=== PATIENT | male | born 1955 | race Caucasian/White ===

== ENCOUNTER 2018-09-10 12:38 | Inpatient (IN) | payer OTHER ==
--- NOTE | 2018-09-10 13:34 | ED ---
Shortness of Breath - HPI Summary HPI Summary: Pt is a 63 y/o male who presents to the ED c/o SOB. He is transferred to [facility] from [place] [facility] via EMS for evaluation in the ED and then admission for his CHF , hyperkalemia, and hypoxia, CKD and elevated troponin. Today was pt's first presentation to [place] ED, so there are no prior labs or EKG's for comparison. Pt [facility], was last seen there on , when pt had bloodwork, CXR and he was placed on Lasix. His wbc on was 14, his Hb was 10.1, his BUN/creat 62/3.1. Today's labs at [place] show wbc 14.0, Hb 9.2, BUN/creat 3.2, K+ 5.8 (normal at [place] is 5.0), glucose 146. QJQ=844. CXR showed low lung volumes, cardiomegaly, and pulmonary vascular congestion. EKG showed SR, with no QRS prolongation or peaked T waves. The K+ was treated with Kayexalate 30gms po, Calcium gluconate, Dextrose and insulin. Whille in [place] pt was hypoxic, with O2 sats 90 and below on room air, with O2 sats improving on 3LNC to 95%. In [place] pt's BP was 150/72, HR 90, R 18- 20, temp 97.2. Pt denied any CP. [place] repeated K+=5.6, and repeat troponin was 0.06, repeat BNP pending. As per medical records, provider at [place] noted pallor, BLE weakness, abdominal distention but abd soft, not tympanitic, and bilateral foot tenderness upon examination with wounds on bilateral toes. While at [place], he had a troponin of 0.058. Pt is dyspneic at rest. PMHx DM, HLD, CAD, AFib, kidney CA with "some of his kidney removed", chronic kidney disease. He denies using at home oxygen normally. He is a former smoker. Vital signs: HR 96 bpm, BP 134/82, O2 sat 95% on 3L oxygen NC. Pt is prescribed Amlodipine, Ascorbic Acid, Atorvastatin, Cephalexin, Vitamin D3, NovoLog Mix 70/30, Lisinopril, Tamsulosin, Lasix. Prior to accepting transfer, I spoke with Dr. Kilgore, Dr. Clay, and Dr. Ha, and all concurred that pt may be accepted to [facility]. - History of Current Complaint Chief Complaint: EDShortnessOfBreath Time Seen by Provider: 09/10/18 12:52 Hx Obtained From: Patient, Medical Records, Other: - Chuck Mcgregor NP at [place] Onset/Duration: Gradual Onset, Still Present Timing: Constant Current Severity: Moderate Dyspnea At: Rest Aggrevating Factors: Nothing Alleviating Factors: Oxygen Related History: Obesity - Allergy/Home Medications Allergies/Adverse Reactions: Allergies Allergy/AdvReac Type Severity Reaction Status Date / Time No Known Drug Allergies Allergy Unknown none Verified 09/10/18 12:54 Home Medications: Home Medications Ascorbic Acid TAB* [Vitamin C TAB*] 250 mg PO DAILY 09/10/18 [History Confirmed 09/10/18] Atorvastatin* [Lipitor*] 40 mg PO DAILY 09/10/18 [History Confirmed 09/10/18] Cholecalciferol TAB* [Vitamin D TAB*] 2,000 units PO DAILY 09/10/18 [History Confirmed 09/10/18] Furosemide TAB* [Lasix TAB*] 40 mg PO DAILY 09/10/18 [History Confirmed 09/10/18 ] Insulin Detemir (NF) [Levemir (NF)] 54 unit SUBCUT BID 09/10/18 [History Confirmed 09/10/18] Insulin REGULAR(*) 10 units SUBCUT AC 09/10/18 [History Confirmed 09/10/18] Lisinopril TAB* [Prinivil TAB*] 20 mg PO DAILY 09/10/18 [History Confirmed 09/10] Mupirocin 2% OINT* [Bactroban 2 % Oint*] 1 applic TOPICAL BID 09/10/18 [History Confirmed 09/10/18] Tamsulosin CAP* [Flomax CAP*] 0.4 mg PO DAILY 09/10/18 [History Confirmed ] amLODIPine TAB* [Norvasc 5 mg TAB*] 10 mg PO DAILY 09/10/18 [History Confirmed 09/10/18] PMH/Surg Hx/FS Hx/Imm Hx Previously Healthy: No Endocrine/Hematology History: Reports: Hx Diabetes Cardiovascular History: Reports: Hx Atrial Fibrillation, Hx Congestive Heart Failure, Hx Coronary Artery Disease, Hx Hypercholesterolemia History: Reports: Hx Renal Disease, Other Problems/Disorders - kidney CA, with some of his kidney removed - Cancer History Cancer Type, Location and Year: "kidney" - Surgical History Surgery Procedure, Year, and Place: kidney CA - 2/3 kidney removed Infectious Disease History: No Infectious Disease History: Denies: Traveled Outside the [place] in Last 30 Days - Family History Known Family History: Positive: Other - pancreatic CA in brother - Social History 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 Alcohol Use: None 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 Hx Substance Use: No Substance Use Type: Reports: None Hx Tobacco Use: Yes Smoking Status (MU): Former Smoker Review of Systems Constitutional: Negative Cardiovascular: Negative Positive: Shortness Of Breath Gastrointestinal: Negative Positive: Other - abdominal distention Positive: no symptoms reported - still makes urine Positive: Myalgia - bilateral foot Positive: Other - pallor, wounds on bilat great toes, bandaged Positive: Weakness - BLE, generalized Psychological: Normal All Other Systems Reviewed And Are Negative: Yes Physical Exam - Summary Physical Exam Summary: Appearance: Ill-appearing, no pain distress, obese Skin: Warm, color reflects adequate perfusion, band-aid on left and right great toe covering wounds (bandage not removed in ED) Head: Normal Head/Face inspection, atraumatic Eyes: Conjunctiva clear ENT: Normal inspection Neck: Supple, no nodes, no JVD Respiratory: Lungs clear, normal breath sounds, moderate respiratory distress, dyspnea at rest Cardio: RRR, No murmur, pulses normal, brisk capillary refill Abdomen: Soft, nontender, nondistended, no masses, no guarding, no rebound Bowel sounds: Present Musculoskeletal: Strength Intact/ROM intact, no calf tenderness, BLE edema, wounds on bilat great toes Psychological: Normal Neuro: Alert, muscle tone normal, no focal deficit, generalized weakness Triage Information Reviewed: Yes Vital Signs On Initial Exam: Initial Vitals Temp Pulse Resp BP Pulse Ox 97.9 F 96 20 145/71 97 09/10/18 12:53 09/10/18 12:53 09/10/18 12:53 09/10/18 12:53 09/10/18 12:53 Vital Signs Reviewed: Yes Diagnostics - Vital Signs Vital Signs Temp Pulse Resp BP Pulse Ox 09/10/18 12:53 97.9 F 96 20 145/71 97 - Laboratory Result Diagrams: 09/10/18 14:09 09/10/18 14:09 Lab Statement: Any lab studies that have been ordered have been reviewed, and results considered in the medical decision making process. - Radiology CXR Radiology Interpretation Completed By: Radiologist Summary of Radiographic Findings: Probable mild pulmonary vascular congestion. ED physician reviewed radiology report. - EKG 14:16 Cardiac Rate: NL - 92 bpm EKG Rhythm: 1st Degree HB - AV block ST Segment: Non-Specific Ectopy: None EKG Comparison: Other - No prior to compare Summary of EKG Findings: An EKG at 14:16 reveals nml AV/IV CT, nml QTc. No acute changes. Re-Evaluation - Re-Evaluation First Eval Re-Evaluation Time: 14:55 Change: Unchanged Comment: Pt is still SOB. Respiratory therapy is in the room evaluating the pt and cardiology is doing an echocardiogram. Pt denies CP Course/Dx - Course Course Of Treatment: Pt is a 63 y/o male who presents to the ED c/o SOB. He is transferred here from [place] ER for admission for his CHF, hyperkalemia, and hypoxia, elevated troponin and CKD. Pt was given kayexalate, calcium gluconate and dextrose and insulin in [place] ED for K+ 5.8. His renal function is stable since 08/26/18 (the only other labs available on pt). His troponin is elevated, but EKG is not a STEMI, and may represent demand ischemia, or elevated due to renal disease. Pt medications reviewed this visit. Nurses notes reviewed. Allergies noted. Bloodwork revealed a Troponin of 0.08 and BNP of 267. A physical exam revealed band-aid of left and right great toes, moderate respiratory distress, dyspnea at rest, and BLE edema. A CXR revealed Probable mild pulmonary vascular congestion. An EKG revealed a rate of 92 bpm, 1st degree AV block, no acute changes. Pt will be admitted to Dr. Ha with final dx of CHF, Hyperkalemia, Hypoxia, and Elevated troponin and CKD. He is agreeable with this plan. 30 minutes of CCT. Discussed pt care with Dr. Clay and Dr. Kilgore prior to transfer, and they will consult if requested. - Diagnoses Provider Diagnoses: CHF (congestive heart failure), Hyperkalemia, Hypoxia, Elevated troponin, CKD ( chronic kidney disease) stage 4, GFR 15-29 ml/min - Physician Notifications Discussed Care of Patient With: Terese Ha Time Discussed With Above Provider: 12:30 Instructed by Provider To: Admit As Inpatient - Critical Care Time Critical Care Time: 30-74 min - 30 minutes; CCT is EXCLUSIVE of separately billable procedures. Discharge - Sign-Out/Discharge Documenting (check all that apply): Patient Departure - Admit Patient Received Moderate/Deep Sedation with Procedure: No - Discharge Plan Condition: Stable Disposition: ADMITTED TO [facility] - Billing Disposition and Condition Condition: STABLE Disposition: Admitted to [facility] - Attestation Statements Document Initiated by Becky: Yes Documenting Scribe: Rajwinder Flores Provider For Whom Alannahe is Documenting (Include Credential): Joselin Odom MD Scribe Attestation: Rajwinder Velazquez scribed for Joselin Odom MD on 09/10/18 at 2329. Scribe Documentation Reviewed: Yes Provider Attestation: The documentation as recorded by the Rajwinder sagastume accurately reflects the service I personally performed and the decisions made by , Joselin Odom MD Status of Scribe Document: Viewed
[2018-09-10 14:20] LABS: ABS Basophils 0.1 10^3/ul (0-0.2); ABS Eosinophils 0.5 10^3/ul (0-0.6); ABS Lymphocytes 1.1 10^3/ul (1.0-4.8); ABS Monocytes 1.3 10^3/ul (0-0.8); ABS Neutrophils 11.9 10^3/ul (1.5-7.7); ABS Nucleated RBC 0 10^3/ul; Eosinophil % 3.6 %; Hematocrit 29 % (36-46); Hemoglobin 9.3 g/dL (14.0-18.0); Lymphocyte % 7.2 %; Mean Corpuscular HGB Conc 33 g/dL (31-36); Mean Corpuscular Hemoglobin 30 pg (27-31); Mean Corpuscular Volume 91 fL (80-94); Mean Platelet Volume 7.3 fL (7.4-10.4); Nucleated Red Blood Cells % 0; Platelet Count 275 10^3/uL (150-450); Red Blood Count 3.14 10^6 /uL (4.18-5.48); Red Cell Distribution Width 14 % (10.5-15); White Blood Count 14.9 10^3/uL (3.5-10.8)
[2018-09-10 14:29] LABS: Activated Partial Thrombo Time 30.5 seconds (26.0-36.3); INR 1.06 (0.77-1.02)
[2018-09-10 14:53] LABS: CKMB ng/mL 2.6 ng/mL (0.6-6.3)
[2018-09-10 14:54] LABS: Troponin I 0.08 ng/mL (<0.04)
[2018-09-10] MEDS ORDERED: Perflutren Lipid Microsphere* 3 ML VIAL ONE (15:02)
[2018-09-10 15:15] LABS: ALT 29 U/L (7-52); AST 23 U/L (13-39); Albumin 3.4 g/dL (3.2-5.2); Albumin/Globulin Ratio 0.9 (1-3); Alkaline Phosphatase 141 U/L (34-104); BUN/Creatinine Ratio 22.4 (8-20); Blood Urea Nitrogen 68 mg/dL (6-24); C Reactive Protein 13.28 mg/L (<8.01); CO2 Carbon Dioxide 19 mmol/L (22-32); Calcium 8.7 mg/dL (8.6-10.3); Chloride 111 mmol/L (101-111); Creatine Kinase 38 U/L (10-223); EGFR African American 25.2 (>60); EGFR Non-African American 20.9 (>60); Globulin 3.7 g/dL (2-4); Glucose 143 mg/dL (70-100); Sodium 139 mmol/L (135-145); Total Protein 7.1 g/dL (6.4-8.9)
[2018-09-10 15:16] LABS: Anion Gap 9 mmol/L (2-11); Potassium 5.2 mmol/L (3.5-5.0)
[2018-09-10] MEDS ORDERED: Albuterol/Ipratropium NEB.SOL* Albuterol 2.5 MG/Ipratropium 0.5 MG 3 ML INH PRN (15:16)
[2018-09-10] MEDS ORDERED: Acetaminophen TAB* 325 MG PO PRN (15:16)
[2018-09-10] MEDS ORDERED: Albuterol 2.5 MG/3 ML NEB.SOL* (0.083%) INH PRN (15:16)
--- NOTE | 2018-09-10 15:50 | ECHO ---
Patient: SHABBIR SHANNON [facility] Rec#: [id number] : 1955 Date: 09/10/2018 Age: 63y Height: 180 cm / 70.9 in Weight: 159 kg / 350.4 lbs Sex: M BSA: 2.67 Room#: -2 Admit Date#: 09/10/2018 Type: Inpatient Referring: Magalis Castaneda Reading: Arie Kilgore MD Director Of Program Management: Suzy Whalen RDCS CC: Orly Webb Transthoracic Echocardiogram Indication: Shortness of breath BP: 145/71 HR: 96 Rhythm: NSR with PACs Findings History: DM, CHF, kidney cancer, former smoker, morbid obesity. Technical Comments: The study is technically limited due to patient body habitus. Completed at 1545. Left Ventricle: The left ventricular chamber size is normal. Mild concentric left ventricular hypertrophy is observed. There is normal left ventricular systolic function. The estimated ejection fraction is 55-60%. There is septal flattening of the interventricular septum consistent with right ventricular volume or pressure overload. There is no consistent Doppler evidence of clinically significant diastolic dysfunction. Left Atrium: The left atrium is severely dilated. Right Ventricle: The right ventricle is moderately dilated. The right ventricular global systolic function is low normal. Right Atrium: The right atrium is moderate to severely dilated. Aortic Valve: The aortic valve is trileaflet. The aortic valve leaflets are mildly thickened. There is a trace of aortic regurgitation. There is no evidence of aortic stenosis. Mitral Valve: There is mitral annular calcification. The mitral valve leaflets are mildly thickened. There is trace to mild mitral regurgitation. There is no evidence of mitral stenosis. Tricuspid Valve: The tricuspid valve leaflets are normal. There is trace to mild tricuspid regurgitation. The right ventricular systolic pressure is estimated at 33 mmHg. There is evidence that pulmonary hypertension may be underestimated. There is no tricuspid stenosis. Pulmonic Valve: The pulmonic valve structure is not well visualized. There is no pulmonic stenosis. Pericardium: There is no significant pericardial effusion. A pericardial fat pad is visualized. Aorta: There is no dilatation of the ascending aorta. There is no dilatation of the aortic arch. There is mild dilatation of the aortic root. Pulmonary Artery: The main pulmonary artery is not well visualized. Venous: The inferior vena cava is dilated. There is an approximate 50% respiratory change in the inferior vena cava dimension. Contrast: Definity was used to optimize study. 3 mL of diluted Definity were utilized. Intravenous contrast was used to enhance endocardial border definition. Summary: There was not any prior study for comparison. Conclusions Mild concentric left ventricular hypertrophy is observed. There is normal left ventricular systolic function. The estimated ejection fraction is 55-60%. The right ventricular global systolic function is low normal. There is a trace of aortic regurgitation. There is no evidence of aortic stenosis. There is trace to mild mitral regurgitation. There is trace to mild tricuspid regurgitation. There is no significant pericardial effusion. Measurements Name Value Normal Range RVIDd (AP) 2D 2.8 cm (0.9 - 2.6) RVDdMajor (2D) 5.4 cm (2.2 - 4.4) RAd ISD 4CH 6.1 cm (3.4 - 4.9) RA (A4C)W 5 cm (2.9 - 4.6) IVSd (2D) 1.1 cm (0.6 - 1) LVPWd (2D) 1.1 cm (0.6 - 1) LVIDd (2D) 4.5 cm (3.6 - 5.4) LVIDs (2D) 3.4 cm - LV FS (2D) 24 % (25 - 45) Aortic Annulus 2.1 cm (1.4 - 2.6) Ao root diameter (2D) 4.1 cm (2.1 - 3.5) Ascending Ao 3.3 cm (2.1 - 3.4) Aortic arch 2.8 cm (1.8 - 3.4) LA dimension (AP) 2D 4.2 cm (2.3 - 3.8) LAd ISD 4CH 6.1 cm (2.9 - 5.3) LA ISD 4CH W 5.2 cm (2.5 - 4.5) Name Value Normal Range LA ESV BP (A/L) index 51 ml/m2 - Name Value Normal Range MV E-wave Vmax 1.2 m/sec - MV deceleration time 158 msec - MV A-wave Vmax 0.9 m/sec - MV E:A ratio 1.3 ratio - LV septal e' Vmax 0.07 m/sec - LV lateral e' Vmax 0.11 m/sec - LV E:e' septal ratio 17.1 ratio - LV E:e' lateral ratio 10.9 ratio - Name Value Normal Range AV Vmax 1.6 m/sec - AV VTI 30 cm - AV peak gradient 10 mmHg - AV mean gradient 6 mmHg - LVOT Vmax 1.1 m/sec - LVOT VTI 20 cm - LVOT peak gradient 5 mmHg - LVOT mean gradient 2 mmHg - LUL Vmax 1 m/sec - Name Value Normal Range TR Vmax 2.5 m/sec - TR peak gradient 25 mmHg - RAP 8 mmHg - RVSP 33 mmHg - IVC diameter 2.2 cm - Name Value Normal Range PV Vmax 1 m/sec - PV peak gradient 4 mmHg -
[2018-09-10] MEDS ORDERED: hydrALAZINE IV* 20 MG/ML VIAL IV SLOW PU PRN (16:25)
[2018-09-10] MEDS ORDERED: Furosemide IV* 10 MG/ML 10 ML VIAL (100 MG) IV ONE (16:35)
[2018-09-10] MEDS: Insulin REGULAR(*) 1 UNITS UNIT SUBCUT SCH (16:53)
[2018-09-10] MEDS: Insulin GLARGINE(*) 1 UNITS UNIT SUBCUT SCH (16:58)
[2018-09-10 17:30] LABS: Troponin I 0.06 ng/mL (<0.04)
--- NOTE | 2018-09-10 17:39 | HP ---
CC: [facility] * HISTORY AND PHYSICAL: DATE OF ADMISSION: 09/10/18 PRIMARY CARE PROVIDER: [facility] ATTENDING PHYSICIAN: Dr. Ha * (dictated by Bradford Ware, SHASTA). CHIEF COMPLAINT: Shortness of breath. HISTORY OF PRESENT ILLNESS: Mr. Deleon is a 63-year-old male with a past medical history significant for insulin-dependent diabetes type 2, renal insufficiency secondary to kidney resection secondary to renal carcinoma; who presented to [facility] today with complaints of shortness of breath. The patient reports that he has had a cough for several weeks. He believes it started in the beginning of August. On 08/26/18, the patient presented to urgent care, who gave him antibiotics. He reports that cough has continued since that time and has not improved. The patient reports the cough is dry. The patient reports that the cough has not been bothering him until last night at 0400 when he awoke significantly short of breath. He denies any aggravating factors for the shortness of breath. He reports alleviating factors include oxygen supplementation given to him in the emergency room at [place]. He denies any chest pain, palpitations, diaphoresis, nausea, vomiting , hemoptysis, fever, abdominal pain. The patient was evaluated in [facility] and given his status, they requested transfer to [facility] for Cardiology consult and further workup. While in [facility], he was given a DuoNeb and Lasix. He had an EKG, which showed no ST elevation and was sinus rhythm. They also noted that his potassium was high. He received Kayexalate, calcium gluconate, insulin, and dextrose. He did not have any peaked T- waves. Specifically, his initial potassium at [facility] was 5.8. In addition, while in [facility], he had troponins, which came back elevated at 0.058 at 06:40 and 0.060 at 10:47. He also had elevated BUN and creatinine and hemoglobin, which are documented as chronic based on results from [facility] earlier this month. Given elevated troponins and his new congestive heart failure along with many chronic medical issues, the provider at [facility] suggested transfer to higher level of care. The provider at [facility] also spoke to Dr. Odom and Dr. Ha, who accepted the patient here at [facility]. While in the emergency room here at [facility], the patient has been in room 2. The patient has been on 3 L oxygen and saturating well. The patient reports improvement in shortness of breath with the oxygen in place. The patient continues to deny chest pain. The patient did have a repeat EKG while here in the emergency room, which showed no significant findings including no ST changes. While in the emergency department here, the patient also had a chest x -ray, which revealed probable mild pulmonary vascular congestion. In addition, he had repeat labs, which were significant for leukocytosis of 14.9, hemoglobin and hematocrit 9.3 and 29 respectively, potassium 5.2, creatinine 3.03, and troponin of 0.80. He also had a BNP which revealed 267. The patient will be admitted to the hospital on observation status to telemetry. PAST MEDICAL HISTORY: 1. Diabetes type 2, insulin-dependent. 2. Renal insufficiency secondary to complete nephrectomy of right kidney, partial nephrectomy of left kidney. 3. Hypertension. 4. Morbid obesity. 5. BPH. 6. Kidney cancer. PAST SURGICAL HISTORY: 1. Nephrectomy as mentioned above. 2. Toe amputation on the right. 3. Tonsillectomy. HOME MEDICATIONS: 1. Insulin regular 10 units subcu a.c. 2. Lasix 40 mg p.o. daily. 3. Flomax 0.4 mg p.o. daily. 4. Bactroban 2% one application topical b.i.d. 5. Lisinopril 20 mg p.o. daily. 6. Insulin Levemir 54 units subcu b.i.d. 7. Vitamin D 2000 units p.o. daily. 8. Lipitor 40 mg p.o. daily. 9. Ascorbic acid 250 mg p.o. daily. 10. Amlodipine 10 mg p.o. daily. ALLERGIES: No known drug allergies. FAMILY HISTORY: The patient reports mother and father are . Unknown cause and unknown medical history. The patient has multiple siblings, all of whom are healthy except 1 brother who is due to pancreatic cancer. The patient denies a family history of cardiovascular disease. The patient denies history of diabetes. SOCIAL HISTORY: The patient is a former smoker. He smoked approximately 10 to 15 years 2 packs per day. The patient is a former alcohol abuser. He has been sober for 19 years. The patient denies drug use. The patient does not work, he is on disability. The patient is not . The patient has no kids. The [facility] [place] [facility] The patient reports he has been placed in this home given his noncompliance. He reports he was not taking his insulin and not taking care of himself. REVIEW OF SYSTEMS: A 14-point review of systems was performed and all pertinent positive and negative findings in the HPI. All others negative. PHYSICAL EXAMINATION GENERAL: Mr. Deleon is a 63-year-old male, who is morbidly obese, sitting in bed, appears in no acute distress. Appears stated age. VITAL SIGNS: Temp 97.9, HR 97, RR 19, O2 saturation is 95% on 3 L, BP 137/82. HEENT: EOMs intact. PERRLA. Oral mucosa is moist without lesions. Posterior pharynx is clear. NECK: Supple. No lymphadenopathy. Full range of motion. RESPIRATORY: Symmetrical chest expansion. No accessory muscle use. Lungs are clear to auscultation. Mildly diminished. CV: Regular rate and rhythm. S1, S2 present. No murmurs, rubs, or gallops. No JVD. ABDOMEN: Soft, nontender to palpation. Bowel sounds normoactive throughout. No bruits. EXTREMITIES: Skin is warm and smooth bilaterally. He has +3 edema on the right and +2 edema on the left, pitting. He has no clubbing or cyanosis. Pedal pulses are 2+ bilaterally. MUSCULOSKELETAL: Full range of motion. No pain or deformities. NEURO: Awake, alert, and oriented x4. Moves all extremities. Motor strength 5 /5 in the upper and lower extremities. SKIN: The patient has bilateral small wounds on the plantar aspect of both feet below the great toes. The bandages were removed and now they are open to air. Remainder of the skin is grossly intact. DIAGNOSTIC STUDIES/LAB DATA: WBC 14.9, hemoglobin 9.3, hematocrit 29, platelets 275. Sodium 139, potassium 5.2, chloride 111, carbon dioxide 19, BUN 68, creatinine 3.03, glucose 143, lactic acid 0.9. Alk phos 141. Troponin 0.08. C- reactive protein 12.28. BNP 267. Chest x-ray, impression: Probable mild pulmonary vascular congestion. EKG, impression: Normal sinus rhythm. No ST changes. ASSESSMENT AND PLAN: Mr. Deleon is a 63-year-old man with a past medical history significant for type 2 diabetes insulin-dependent, hypertension, morbid obesity, renal insufficiency secondary to nephrectomy secondary to renal carcinoma, who presented to the emergency room today with complaints of shortness of breath and was found to have an acute congestive heart failure exacerbation. The patient will be admitted OBV. 1. Shortness of breath. As mentioned in the HPI, the patient awoke with shortness of breath after having about a month's worth of a cough. The patient is requiring supplemental oxygen at 3 L to maintain oxygen saturations above 92% . On the differentials include shortness of breath due to cardiac nature. Specifically, congestive heart failure. The patient does have an elevated BNP. The patient does have an elevated trop, which is slightly trending up. The patient has no chest pain or other associated symptoms. The patient has no EKG changes. We will trend the patient's troponins and plan accordingly. Dr. Kilgore is aware of the patient as he was contacted by Dr. Odom. Echo has been ordered. Also on the differential includes lung etiology. The patient's chest x-ray does not show an infiltrate or any consolidation. The patient does have a slightly elevated white count, but no elevated lactic acid and he is not febrile. We will continue the patient's DuoNeb. If the patient starts to show signs of infection, we will start antibiotics. We will continue the supplemental oxygen. We will repeat chest x-ray as needed. Also for lung etiology, I have ordered a D-dimer, which was 312. This is not positive using the age-adjusted levels. I do think if the patient continues to be tachycardic and requiring supplemental oxygen and does not improve, we should get a V/Q scan. We will need to avoid a CTA given the patient's kidney function. Finally , the patient's shortness of breath could also be exacerbated by his anemia. I will order iron studies and stool guaiac for blood. 2. Congestive heart failure. The patient was found to have possibly congestive heart failure exacerbation. He reports he does not carry a history of congestive heart failure, but is on Lasix at home. The patient's x-ray is consistent with congestive heart failure. The patient's BNP is consistent with congestive heart failure at 267. The patient did receive Lasix 40 mg IV while in [place] [facility]. We do not know how the patient responded to this as we do not have any output. We will continue IV Lasix to further diurese this patient. We will get strict I's and O's. We will monitor weights. 3. Elevated troponins. As mentioned in HPI, the patient does have slightly elevated troponins that have trended up very slightly. The patient has no EKG changes. The patient has no chest pain or other associated symptoms. We will continue to monitor the patient's troponins. It should be noted that the patient was given an aspirin 324 mg while in the emergency department at [place]. I will continue the patient on aspirin 81 mg daily while in the hospital. Dr. Kilgore is aware of the patient. 4. Hyperkalemia. The patient has a potassium of 5.2. This has improved from a potassium while at [facility]. We will continue to monitor. The patient will be on tele. 5. Leukocytosis. The patient has an elevated white blood count of 14.9. Once again, he is not febrile. We will monitor the patient for signs and symptoms of infection. 6. Anemia. The patient has a hemoglobin and hematocrit of 9.3 and 29 respectively. I will order a stool occult for blood. I will order iron studies. 7. Diabetes type 2, insulin-dependent. We will continue the patient's home medication regimen, but slightly decrease given his acute illness. We will monitor the patient's fingersticks a.c. and h.s. We will add a sliding scale. We will provide a consistent carb diet. 8. Hypertension. The patient is currently normotensive. We will continue the patient's amlodipine. We will monitor routinely. 9. Benign prostatic hypertrophy. We will continue the patient's Flomax. 10. Renal carcinoma, status post right total nephrectomy. Left partial nephrectomy. We will continue to monitor the patient's creatinine. We will contact Dr. Clay as needed. 11. FEN: The patient will not be receiving any IV fluids given his acute congestive heart failure. We will monitor his creatinine. The patient will be provided with a consistent carb diet. 12. Code status: The patient is a full code. 13. Surrogate decision maker: The patient's surrogate decision maker will be his older sister, Margaret Brambila, [phone]. 14. DVT prophylaxis: Based on the DVT Risk Assessment, the patient is a high risk. I will order subcu heparin. TIME SPENT: Approximately 60 minutes was spent on this admission, greater than half the time was spent with the patient obtaining my history, performing my physical exam, and reviewing my plan of care. This case has been reviewed with my attending, Dr. Ha, who agrees with my plan of care. BRADFORD WARE, SHASTA [id number]/CPS #: [id number] HA
[2018-09-10 20:25] LABS: Troponin I 0.06 ng/mL (<0.04)
[2018-09-10] MEDS: Mupirocin 2% OINT* TUBE TOPICAL SCH (21:09)
[2018-09-10] MEDS: Heparin VIAL(*) 5000 UNITS/ML VIAL (FIVE THOUSAND) SUBCUT SCH (21:11)
[2018-09-10 23:52] LABS: Troponin I 0.06 ng/mL (<0.04)
[2018-09-11] MEDS ORDERED: Tamsulosin CAP* 0.4 MG PO ONE
[2018-09-11] MEDS: Insulin GLARGINE(*) 1 UNITS UNIT SUBCUT SCH ×4 (05:11→20:42)
[2018-09-11] MEDS: Heparin VIAL(*) 5000 UNITS/ML VIAL (FIVE THOUSAND) SUBCUT SCH ×3 (05:16→20:41)
[2018-09-11 05:48] LABS: ABS Basophils 0.1 10^3/ul (0-0.2); ABS Eosinophils 0.5 10^3/ul (0-0.6); ABS Lymphocytes 1.1 10^3/ul (1.0-4.8); ABS Monocytes 1.4 10^3/ul (0-0.8); ABS Neutrophils 10.7 10^3/ul (1.5-7.7); ABS Nucleated RBC 0 10^3/ul; Hematocrit 26 % (36-46); Hemoglobin 8.7 g/dL (14.0-18.0); Lymphocyte % 7.6 %; Mean Corpuscular HGB Conc 33 g/dL (31-36); Mean Corpuscular Hemoglobin 30 pg (27-31); Mean Corpuscular Volume 91 fL (80-94); Mean Platelet Volume 6.8 fL (7.4-10.4); Nucleated Red Blood Cells % 0; Platelet Count 243 10^3/uL (150-450); Red Blood Count 2.87 10^6 /uL (4.18-5.48); Red Cell Distribution Width 14 % (10.5-15); White Blood Count 13.8 10^3/uL (3.5-10.8)
[2018-09-11 06:01] LABS: Albumin 2.9 g/dL (3.2-5.2); Anion Gap 6 mmol/L (2-11); CO2 Carbon Dioxide 21 mmol/L (22-32); Calcium 8.3 mg/dL (8.6-10.3); Chloride 111 mmol/L (101-111); Potassium 5.2 mmol/L (3.5-5.0); Sodium 138 mmol/L (135-145)
[2018-09-11 06:07] LABS: ALT 23 U/L (7-52); AST 20 U/L (13-39); Albumin/Globulin Ratio 0.9 (1-3); Alkaline Phosphatase 124 U/L (34-104); BUN/Creatinine Ratio 22.8 (8-20); Blood Urea Nitrogen 68 mg/dL (6-24); Cholesterol 77 mg/dL; EGFR African American 25.7 (>60); EGFR Non-African American 21.3 (>60); Globulin 3.2 g/dL (2-4); Glucose 130 mg/dL (70-100); LDL Cholesterol 35 mg/dL; Total Protein 6.1 g/dL (6.4-8.9); Triglycerides 66 mg/dL
[2018-09-11 06:16] LABS: Total Iron Binding Capacity 267 mcg/dL (250-450); Transferrin 191 mg/dL (203-362)
[2018-09-11 06:17] LABS: % Iron Saturation 6 % (15-55); Iron < 17 ug/dL (50-212)
[2018-09-11 06:31] LABS: TSH (Thyroid Stimulating Horm) 3.15 mcIU/mL (0.34-5.60)
[2018-09-11 06:38] LABS: Ferritin 114.9 ng/mL (24-336)
[2018-09-11 06:42] LABS: Folate > 20.00 ng/mL (>3.99)
[2018-09-11] MEDS: Insulin REGULAR(*) 1 UNITS UNIT SUBCUT SCH (07:14)
[2018-09-11] MEDS ORDERED: Insulin GLARGINE(*) 1 UNITS UNIT SUBCUT ONE (08:06)
[2018-09-11] MEDS: Tamsulosin CAP* 0.4 MG PO SCH (08:40)
[2018-09-11] MEDS: Aspirin 81 mg CHEW TAB* 81 MG TAB.CHEW PO SCH (08:40)
[2018-09-11] MEDS: Lisinopril TAB* 10 MG PO SCH (08:40)
[2018-09-11] MEDS: Atorvastatin* 40 MG TAB PO SCH (08:40)
[2018-09-11] MEDS: amLODIPine TAB* 5 MG PO SCH (08:41)
[2018-09-11] MEDS: Mupirocin 2% OINT* TUBE TOPICAL SCH ×2 (08:49→20:44)
[2018-09-11] MEDS ORDERED: Iron Sucrose* 200 MG in NS 0.9% 100 ML* 100 ML IVPB ONE (11:08)
[2018-09-11] MEDS ORDERED: Insulin REGULAR(*) 1 UNITS UNIT SUBCUT SCH (11:30)
--- NOTE | 2018-09-11 11:35 | CONSULT ---
Subjective Date of Service: 09/11/18 Interval History: Mr. Deleon is a 63 yo male with PMH significant for DM2 and renal insufficiency secondary to renal carcinoma. Mr. Deleon originally presented to [facility] with complaints of SOB with a cough. He was found to have elevated troponins and was transferred from [facility] ED to [facility]. Mr. Deleon presented to the hospital with wounds to bilateral feet. He states that the wounds on his feet have not been present for very long, he is unable to give a time frame. He states that he follows with the [facility] wound center. He states that he doesn't have dressing for the wounds at home. Patient seen and examined at bedside. Family History: Unchanged from Admission Social History: Unchanged from Admission Past Medical History: Unchanged from Admission Review of Systems - Measurements Intake and Output: Intake and Output Last 24 Hours 09/09/18 09/10/18 09/11/18 09/12/18 06:59 06:59 06:59 06:59 Intake Total 1086 360 Output Total 650 Balance 436 360 Weight 371 lb 9.6 oz Intake: IV Fluids 6 Oral 1080 360 Output: Urine 650 Other: Estimated Void Large - Review of Systems Constitutional Symptoms: Negative: Fever, Other - Chills Dermatology: Positive: Other - Open areas to bilateral feet Endocrinology: Positive: Diabetes Mellitus Objective Active Medications: Acetaminophen (Tylenol Tab*) 650 mg PO Q4H PRN Reason: FEVER/PAIN Albuterol (Ventolin 2.5 Mg/3 Ml Neb.Jessica*) 2.5 mg INH [id number] AWAKE PRN Reason: sob/wheezing Albuterol/Ipratropium (Duoneb (Albuterol 2.5 Mg/Ipratropium 0.5 Mg)) 1 neb INH [id number] AWAKE PRN Reason: sob/wheexing Amlodipine Besylate (Norvasc Tab*) 10 mg PO DAILY [facility] Aspirin (Aspirin 81 Mg Chew Tab*) 81 mg PO DAILY [facility] Atorvastatin Calcium (Lipitor*) 40 mg PO DAILY [facility] Furosemide (Lasix Iv*) 40 mg IV SLOW PU 0800,1500 [facility] Heparin Sodium (Porcine) (Heparin Vial(*)) 5,000 units SUBCUT Q8HR [facility] Iron Sucrose 200 mg/ Sodium (Chloride) 110 mls @ 110 mls/hr IVPB ONCE ONE Stop: 09/11/18 12:07 Insulin Glargine (Lantus(*)) 18 units SUBCUT Q12H [facility] Insulin Human Regular (Insulin Regular(*)) 0 units SUBCUT ACHS [facility]; Protocol Lisinopril (Prinivil Tab*) 20 mg PO DAILY [facility] Mupirocin (Bactroban 2 % Oint*) 1 applic TOPICAL BID [facility] Tamsulosin HCl (Flomax Cap*) 0.4 mg PO DAILY [facility] Vital Signs - 8 hr 09/11/18 09/11/18 09/11/18 04:10 07:20 08:20 Temperature 97.8 F 97.9 F Pulse Rate 86 79 Respiratory 20 16 16 Rate Blood Pressure 157/73 154/76 (mmHg) O2 Sat by Pulse 98 97 Oximetry Oxygen Devices in Use Now: Nasal Cannula Appearance: NAD, laying in bed Ears/Nose/Mouth/Throat: Mucous Membranes Moist Skin: - - See skin note below Neurological: Alert and Oriented x 3, NL Muscle Strength and Tone Result Diagrams: 09/16/18 06:03 09/16/18 06:03 Skin Deviation Note - Skin Deviation Findings Right plantar aspect of foot - Open area 1.6 cm x 1.1 cm x 0.1 cm. The wound base is dry with no drainage. The surrounding skin is intact without erythema. Left plantar aspect of foot - Open area is 2 cm x 2 cm x 0.1 cm. There is an area at about 3 o'clock that is 0.2 cm. The wound bed is pink. No drainage or erythema. Surrounding skin is intact. Assessment/Plan: Mr. Deleon is a 63 yo male with PMH significant for DM2 and renal insufficiency secondary to renal carcinoma. Mr. Deleon originally presented to [facility] with complaints of SOB with a cough. He was found to have an elevated troponin and was transferred from [facility] ED to [facility]. 1. Bilateral diabetic foot ulcers. Apply antibiotic ointment daily, may cover with a dry dressing such as a bandaid. Continue to follow with [facility] wound center. Consider ABIs and MRI if these wounds become chronic. 2. Diabetes Mellitus, type 2 with CKD. HgA1C 8.8. Maintain good glycemic control to allow for wound healing. 3. Morbid obesity. BMI 4. Diet. Consistent carbohydrate diet 5. Code Status. Full Code 6. Disposition. Disposition per primary medicine team TIME SPENT: The time spent on this wound consultation was 25 minutes and 15 minutes was spent with the patient discussing past medical history, assessing, measuring, and photographing the wounds. Wound Problem/Plan Is Patient a Wound Clinic Patient: Yes - [facility] Current Treatment: None Attending: Tammie Bishop
[2018-09-11] MEDS: Furosemide IV* 10 MG/ML 2 ML VIAL (20 MG) IV SLOW PU SCH ×2 (11:57→14:35)
--- NOTE | 2018-09-11 15:09 | PN ---
Subjective Date of Service: 09/11/18 Interval History: Patient is feeling the same as previously. Patient is SOB, particularly with minimal exertion. This came on Suddenly on sunday morning. Patient has had chronic LE swelling, but has not been previously diagnosed with HF despite previously elevate NT-proBNP this month from [place]. Patient denies CP, N/V, F/C, abdominal pain, diarrhea, patient is unaware of his previous Creatinine and has good urine output. 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 Family History: Unchanged from Admission Social History: Unchanged from Admission Past Medical History: Unchanged from Admission Objective Active Medications: Acetaminophen (Tylenol Tab*) 650 mg PO Q4H PRN PRN Reason: FEVER/PAIN Albuterol (Ventolin 2.5 Mg/3 Ml Neb.Jessica*) 2.5 mg INH [id number] AWAKE PRN PRN Reason: sob/wheezing Albuterol/Ipratropium (Duoneb (Albuterol 2.5 Mg/Ipratropium 0.5 Mg)) 1 neb INH [id number] AWAKE PRN PRN Reason: sob/wheexing Amlodipine Besylate (Norvasc Tab*) 10 mg PO DAILY [facility] Last Admin: 09/11/18 08:41 Dose: 10 mg Aspirin (Aspirin 81 Mg Chew Tab*) 81 mg PO DAILY [facility] Last Admin: 09/11/18 08:40 Dose: 81 mg Atorvastatin Calcium (Lipitor*) 40 mg PO DAILY [facility] Last Admin: 09/11/18 08:40 Dose: 40 mg Furosemide (Lasix Iv*) 40 mg IV SLOW PU 0800,1500 [facility] Last Admin: 09/11/18 14:35 Dose: 40 mg Heparin Sodium (Porcine) (Heparin Vial(*)) 5,000 units SUBCUT Q8HR [facility] Last Admin: 09/11/18 14:35 Dose: 5,000 units Insulin Glargine (Lantus(*)) 18 units SUBCUT Q12H [facility] Last Admin: 09/11/18 08:48 Dose: 18 unit Insulin Human Regular (Insulin Regular(*)) 0 units SUBCUT ACHS [facility]; Protocol Last Admin: 09/11/18 11:51 Dose: 3 unit Lisinopril (Prinivil Tab*) 20 mg PO DAILY [facility] Last Admin: 03/20/19 08:40 Dose: 20 mg Mupirocin (Bactroban 2 % Oint*) 1 applic TOPICAL BID [facility] Last Admin: 09/11/18 08:49 Dose: 1 admin Tamsulosin HCl (Flomax Cap*) 0.4 mg PO DAILY [facility] Last Admin: 09/11/18 08:40 Dose: 0.4 mg Vital Signs - 8 hr 09/11/18 09/11/18 09/11/18 07:20 07:40 08:20 Temperature 98.2 F 97.9 F Pulse Rate 85 79 Respiratory 16 16 16 Rate Blood Pressure 138/73 154/76 (mmHg) O2 Sat by Pulse 98 97 Oximetry 09/11/18 12:04 Temperature 98.2 F Pulse Rate 85 Respiratory 16 Rate Blood Pressure 137/69 (mmHg) O2 Sat by Pulse 98 Oximetry Oxygen Devices in Use Now: Nasal Cannula Appearance: Patient is a 63yo male who appears older than stated age and is sitting in the bed in [facility]. Eyes: No Scleral Icterus, PERRLA Ears/Nose/Mouth/Throat: NL Teeth, Lips, Gums, Clear Oropharnyx, Mucous Membranes Moist Neck: NL Appearance and Movements; NL JVP, Trachea Midline Respiratory: Symmetrical Chest Expansion and Respiratory Effort, Clear to Auscultation Cardiovascular: NL Sounds; No Murmurs; No JVD, RRR, - - 2+ Edema in B/L LE. Abdominal: NL Sounds; No Tenderness; No Distention, No Hepatosplenomegaly Lymphatic: No Cervical Adenopathy Extremities: No Clubbing, Cyanosis Skin: No Nodules or Sclerosis, - - Ulcers without surrounding erythema on B/L Plantar surfaces of feet. Neurological: Alert and Oriented x 3, NL Sensation, NL Muscle Strength and Tone , - - CN II-XII intact. Result Diagrams: 09/11/18 05:40 09/11/18 05:40 Assess/Plan/Problems-Billing Assessment: Patient is a 63yo male with a PMH for RCC S/P Nephrectomy, HTN, DM II, who is admitted with Acute Hypoxic respiratory failure due to HFpEF exacerbation and is improving slowly with IV diuresis. - Patient Problems (1) Acute heart failure with preserved ejection fraction Current Visit: Yes Status: Acute Code(s): I50.31 - ACUTE DIASTOLIC ( CONGESTIVE) HEART FAILURE SNOMED Code(s): 858152274 Comment: - With Acute hypoxic respiratory failure - Clinically fluid overloaded. LE Edema, Diminished lung sounds. - Patient denies previous history of HF, but had an elevated pro-ntBNP from 3/4 - TTE shows preserved EF with RV overload. - IV diuresis at relatively high dose due to Renal Failure - Strict I/O and Daily Weights. (2) Pulmonary HTN Current Visit: Yes Status: Acute Code(s): I27.20 - PULMONARY HYPERTENSION, UNSPECIFIED SNOMED Code(s): 91415843 Comment: - RV pressure overload on TTE, differential includes HFpEF, SAI or Obesity Hypoventilation. - Will check overnight pulse oximetry for SAI - V/Q scan negative for PE (3) HTN (hypertension) Current Visit: Yes Status: Acute Code(s): I10 - ESSENTIAL (PRIMARY) HYPERTENSION SNOMED Code(s): 66499505 Comment: - Normotensive (4) Diabetes mellitus Current Visit: Yes Status: Acute Code(s): E11.9 - TYPE 2 DIABETES MELLITUS WITHOUT COMPLICATIONS SNOMED Code(s): 68710125 Comment: - Continue Basal and SSI, hold scheduled mealtime insulin due to normoglycemia - A1c 8.8%, will need continued adjustment of medications outpatient when back to normal oral intake routine. (5) CKD (chronic kidney disease) Current Visit: Yes Status: Acute Code(s): N18.9 - CHRONIC KIDNEY DISEASE, UNSPECIFIED SNOMED Code(s): 637043076 Comment: - Due to Nephrectomy with likely Diabetic nephropathy contributing - At baseline from / labs. - Monitor closely with diuresis - Avoid nephrotoxins, lisinopril for renal protection. - Hyperkalemia, treated at [place] but still moderately elevated. Treat with IV lasix and recheck in AM. (6) DVT prophylaxis Current Visit: Yes Status: Acute Code(s): CMK7137 - SNOMED Code(s): 827038861 Comment: - Heparin SubQ (7) Full code status Current Visit: Yes Status: Acute Code(s): Z78.9 - OTHER SPECIFIED HEALTH STATUS SNOMED Code(s): 657963560 Status and Disposition: Inpatient for diuresis. Discharge when medically stable.
[2018-09-11] MEDS ORDERED: Dextrose 50% Syringe 50 ML* 25 GM/50 ML SYRINGE IV PUSH PRN (15:42)
[2018-09-11] MEDS: Insulin LISPRO* 1 UNITS UNIT SUBCUT SCH (16:42)
[2018-09-12 05:36] LABS: ABS Basophils 0 10^3/ul (0-0.2); ABS Eosinophils 0.6 10^3/ul (0-0.6); ABS Lymphocytes 1.3 10^3/ul (1.0-4.8); ABS Monocytes 1.2 10^3/ul (0-0.8); ABS Neutrophils 7.3 10^3/ul (1.5-7.7); ABS Nucleated RBC 0 10^3/ul; Eosinophil % 6.1 %; Hematocrit 26 % (36-46); Hemoglobin 8.7 g/dL (14.0-18.0); Lymphocyte % 12.2 %; Mean Corpuscular HGB Conc 33 g/dL (31-36); Mean Corpuscular Hemoglobin 31 pg (27-31); Mean Corpuscular Volume 91 fL (80-94); Nucleated Red Blood Cells % 0; Platelet Count 233 10^3/uL (150-450); Red Blood Count 2.85 10^6 /uL (4.18-5.48); Red Cell Distribution Width 14 % (10.5-15); White Blood Count 10.4 10^3/uL (3.5-10.8)
[2018-09-12] MEDS: Heparin VIAL(*) 5000 UNITS/ML VIAL (FIVE THOUSAND) SUBCUT SCH ×3 (05:49→21:51)
[2018-09-12 05:52] LABS: BUN/Creatinine Ratio 22.7 (8-20); Calcium 8.1 mg/dL (8.6-10.3); EGFR African American 24.8 (>60); EGFR Non-African American 20.5 (>60)
[2018-09-12 06:01] LABS: Potassium 5.2 mmol/L (3.5-5.0)
[2018-09-12] MEDS ORDERED: Iron Sucrose* 200 MG in NS 0.9% 100 ML* 100 ML IVPB ONE (08:30)
[2018-09-12] MEDS: Insulin LISPRO* 1 UNITS UNIT SUBCUT SCH ×3 (08:31→17:15)
[2018-09-12] MEDS: Atorvastatin* 40 MG TAB PO SCH (08:32)
[2018-09-12] MEDS: Aspirin 81 mg CHEW TAB* 81 MG TAB.CHEW PO SCH (08:32)
[2018-09-12] MEDS: Furosemide IV* 10 MG/ML 2 ML VIAL (20 MG) IV SLOW PU SCH ×2 (08:32→16:02)
[2018-09-12] MEDS: Insulin GLARGINE(*) 1 UNITS UNIT SUBCUT SCH ×2 (08:32→20:28)
[2018-09-12] MEDS: Tamsulosin CAP* 0.4 MG PO SCH (08:32)
[2018-09-12] MEDS: Lisinopril TAB* 10 MG PO SCH (08:32)
[2018-09-12] MEDS: amLODIPine TAB* 5 MG PO SCH (08:32)
[2018-09-12] MEDS: Mupirocin 2% OINT* TUBE TOPICAL SCH ×2 (08:36→20:30)
[2018-09-12] MEDS ORDERED: Neomycin/Polym/Bacit TOP OINT* 15 GM TOPICAL SCH (09:00)
--- NOTE | 2018-09-12 14:36 | PN ---
Subjective Date of Service: 09/12/18 Interval History: Patient is still feeling SOB with minimal exertion, but states he feels improved from yesterday. Patient denies CP, N/V, dizziness, palpitations, abdominal pain, dysuria. Patient has not been walking, patient denies F/C or repeat hemoptysis. Patient has orthopnea which is not a new finding. Patient has been urinating frequently. Family History: Unchanged from Admission Social History: Unchanged from Admission Past Medical History: Unchanged from Admission Objective Active Medications: Acetaminophen (Tylenol Tab*) 650 mg PO Q4H PRN PRN Reason: FEVER/PAIN Albuterol (Ventolin 2.5 Mg/3 Ml Neb.Jessica*) 2.5 mg INH [id number] AWAKE PRN PRN Reason: sob/wheezing Albuterol/Ipratropium (Duoneb (Albuterol 2.5 Mg/Ipratropium 0.5 Mg)) 1 neb INH [id number] AWAKE PRN PRN Reason: sob/wheexing Amlodipine Besylate (Norvasc Tab*) 10 mg PO DAILY [facility] Last Admin: 09/12/18 08:32 Dose: 10 mg Aspirin (Aspirin 81 Mg Chew Tab*) 81 mg PO DAILY [facility] Last Admin: 09/12/18 08:32 Dose: 81 mg Atorvastatin Calcium (Lipitor*) 40 mg PO DAILY [facility] Last Admin: 09/12/18 08:32 Dose: 40 mg Dextrose (D50w Syringe 50 Ml*) 12.5 gm IV PUSH .FOR FS < 60 - SS PRN PRN Reason: FS < 60 Furosemide (Lasix Iv*) 60 mg IV SLOW PU 0800,1500 [facility] Last Admin: 09/12/18 08:32 Dose: 60 mg Heparin Sodium (Porcine) (Heparin Vial(*)) 5,000 units SUBCUT Q8HR [facility] Last Admin: 09/12/18 14:20 Dose: 5,000 units Insulin Glargine (Lantus(*)) 18 units SUBCUT Q12H [facility] Last Admin: 09/12/18 08:32 Dose: 18 unit Insulin Human Lispro (Humalog*) 0 units SUBCUT AC [facility]; Protocol Last Admin: 09/12/18 12:42 Dose: 6 units Lisinopril (Prinivil Tab*) 20 mg PO DAILY [facility] Last Admin: 09/12/18 08:32 Dose: 20 mg Mupirocin (Bactroban 2 % Oint*) 1 applic TOPICAL BID [facility] Last Admin: 09/12/18 08:36 Dose: 1 admin Tamsulosin HCl (Flomax Cap*) 0.4 mg PO DAILY [facility] Last Admin: 09/12/18 08:32 Dose: 0.4 mg Vital Signs - 8 hr 09/12/18 09/12/18 08:00 08:30 Pulse Rate 82 Respiratory 18 Rate Blood Pressure 160/89 (mmHg) Oxygen Devices in Use Now: Nasal Cannula Appearance: Patient is a 63yo male who appears stated age and is sitting in the bed in [facility]. Eyes: No Scleral Icterus, PERRLA Ears/Nose/Mouth/Throat: NL Teeth, Lips, Gums, Clear Oropharnyx, Mucous Membranes Moist Neck: NL Appearance and Movements; NL JVP, Trachea Midline Respiratory: Symmetrical Chest Expansion and Respiratory Effort, - - Diminished in bases. Cardiovascular: NL Sounds; No Murmurs; No JVD, RRR, - - 2+ Pitting edema. Abdominal: NL Sounds; No Tenderness; No Distention, No Hepatosplenomegaly Lymphatic: No Cervical Adenopathy Extremities: No Clubbing, Cyanosis Skin: No Nodules or Sclerosis, - - Ulcers on bases of feet, unchanged. Neurological: Alert and Oriented x 3, NL Sensation, NL Muscle Strength and Tone , - - CN II-XII intact. Result Diagrams: 09/12/18 05:27 09/12/18 05:27 Microbiology and Other Data: Microbiology 09/11/18 16:47 Gram Stain - Final Sputum Expectorated Sputum Culture - Preliminary Proteus Mirabilis Assess/Plan/Problems-Billing Assessment: - Patient Problems (1) Acute heart failure with preserved ejection fraction Current Visit: Yes Status: Acute Code(s): I50.31 - ACUTE DIASTOLIC ( CONGESTIVE) HEART FAILURE SNOMED Code(s): 828432901 Comment: - With Acute hypoxic respiratory failure - Clinically fluid overloaded. LE Edema, Diminished lung sounds. - Patient denies previous history of HF, but had an elevated pro-ntBNP from 08/26 - TTE shows preserved EF with RV overload. - IV diuresis at relatively high dose due to Renal Failure, increase again today due to weight increase overnight despite subjective improvement in symptoms. - Strict I/O and Daily Weights, gained 3 pounds overnight. (2) Pulmonary HTN Current Visit: Yes Status: Acute Code(s): I27.20 - PULMONARY HYPERTENSION, UNSPECIFIED SNOMED Code(s): 13558348 Comment: - RV pressure overload on TTE, differential includes HFpEF, SAI or Obesity Hypoventilation. - Will check overnight pulse oximetry for SAI, unable to be done - V/Q scan negative for PE (3) HTN (hypertension) Current Visit: Yes Status: Acute Code(s): I10 - ESSENTIAL (PRIMARY) HYPERTENSION SNOMED Code(s): 05261649 Comment: - Slightly Hypertensive, will treat if persistent despite IV diuresis. - Continue amlodipine and lisinopril. (4) Diabetes mellitus Current Visit: Yes Status: Acute Code(s): E11.9 - TYPE 2 DIABETES MELLITUS WITHOUT COMPLICATIONS SNOMED Code(s): 01210921 Comment: - Continue Basal and SSI, hold scheduled mealtime insulin due to normoglycemia - Worsening control, add scheduled mealtime insulin tomorrow if continued poor control. - A1c 8.8%, will need continued adjustment of medications outpatient when back to normal oral intake routine. (5) CKD (chronic kidney disease) Current Visit: Yes Status: Acute Code(s): N18.9 - CHRONIC KIDNEY DISEASE, UNSPECIFIED SNOMED Code(s): 635823097 Comment: - Due to Nephrectomy with likely Diabetic nephropathy contributing - At baseline from 3/4 labs. - Monitor closely with diuresis - Avoid nephrotoxins, lisinopril for renal protection. - Hyperkalemia, treated at [place] but still moderately elevated. Treat with IV lasix and recheck in AM. - Will obtain records from PCP for more comprehnsive history, will need nephrology Follow up outpatient which ws previously scheduled. (6) DVT prophylaxis Current Visit: Yes Status: Acute Code(s): WUO5102 - SNOMED Code(s): 555599093 Comment: - Heparin SubQ (7) Full code status Current Visit: Yes Status: Acute Code(s): Z78.9 - OTHER SPECIFIED HEALTH STATUS SNOMED Code(s): 184483960 Status and Disposition: Inpatient for diuresis. Discharge when medically stable.
[2018-09-13] MEDS: Heparin VIAL(*) 5000 UNITS/ML VIAL (FIVE THOUSAND) SUBCUT SCH ×3 (05:22→21:20)
[2018-09-13 06:39] LABS: ABS Basophils 0.1 10^3/ul (0-0.2); ABS Eosinophils 0.7 10^3/ul (0-0.6); ABS Lymphocytes 1.5 10^3/ul (1.0-4.8); ABS Monocytes 1.3 10^3/ul (0-0.8); ABS Neutrophils 8.3 10^3/ul (1.5-7.7); ABS Nucleated RBC 0 10^3/ul; Eosinophil % 6.1 %; Hematocrit 26 % (36-46); Hemoglobin 8.5 g/dL (14.0-18.0); Lymphocyte % 12.6 %; Mean Corpuscular HGB Conc 33 g/dL (31-36); Mean Corpuscular Hemoglobin 30 pg (27-31); Mean Corpuscular Volume 91 fL (80-94); Mean Platelet Volume 7.4 fL (7.4-10.4); Nucleated Red Blood Cells % 0; Platelet Count 229 10^3/uL (150-450); Red Blood Count 2.83 10^6 /uL (4.18-5.48); Red Cell Distribution Width 13 % (10.5-15); White Blood Count 11.8 10^3/uL (3.5-10.8)
[2018-09-13 07:10] LABS: Calcium 8.2 mg/dL (8.6-10.3); EGFR African American 25.5 (>60); EGFR Non-African American 21.1 (>60); Magnesium 1.9 mg/dL (1.9-2.7)
[2018-09-13] MEDS: amLODIPine TAB* 5 MG PO SCH (08:07)
[2018-09-13] MEDS: Aspirin 81 mg CHEW TAB* 81 MG TAB.CHEW PO SCH (08:07)
[2018-09-13] MEDS: Insulin LISPRO* 1 UNITS UNIT SUBCUT SCH ×3 (08:07→17:08)
[2018-09-13] MEDS: Atorvastatin* 40 MG TAB PO SCH (08:07)
[2018-09-13] MEDS: Lisinopril TAB* 10 MG PO SCH (08:07)
[2018-09-13] MEDS: Tamsulosin CAP* 0.4 MG PO SCH (08:07)
[2018-09-13] MEDS: Insulin GLARGINE(*) 1 UNITS UNIT SUBCUT SCH ×2 (08:08→21:20)
[2018-09-13] MEDS: Furosemide IV* 10 MG/ML 2 ML VIAL (20 MG) IV SLOW PU SCH ×3 (08:08→14:35)
[2018-09-13] MEDS: Mupirocin 2% OINT* TUBE TOPICAL SCH ×2 (08:09→21:20)
[2018-09-13] MEDS ORDERED: Iron Sucrose* 200 MG in NS 0.9% 100 ML* 100 ML IVPB ONE (08:30)
--- NOTE | 2018-09-13 15:36 | PN ---
Subjective Date of Service: 09/13/18 Interval History: Patient is feeling better, breathing easier, urinating frequently. Still significantly SOB with exertion. No dizziness on standing, CP, N/V, abdominal pain, F/C, dysuria, or other pain. Patient is a remarkably poor historian. Family History: Unchanged from Admission Social History: Unchanged from Admission Past Medical History: Unchanged from Admission Objective Active Medications: Acetaminophen (Tylenol Tab*) 650 mg PO Q4H PRN PRN Reason: FEVER/PAIN Albuterol (Ventolin 2.5 Mg/3 Ml Neb.Jessica*) 2.5 mg INH [id number] AWAKE PRN PRN Reason: sob/wheezing Last Admin: 09/13/18 03:05 Dose: 2.5 mg Albuterol/Ipratropium (Duoneb (Albuterol 2.5 Mg/Ipratropium 0.5 Mg)) 1 neb INH [id number] AWAKE PRN PRN Reason: sob/wheexing Amlodipine Besylate (Norvasc Tab*) 10 mg PO DAILY [facility] Last Admin: 09/13/18 08:07 Dose: 10 mg Aspirin (Aspirin 81 Mg Chew Tab*) 81 mg PO DAILY [facility] Last Admin: 09/13/18 08:07 Dose: 81 mg Atorvastatin Calcium (Lipitor*) 40 mg PO DAILY [facility] Last Admin: 09/13/18 08:07 Dose: 40 mg Dextrose (D50w Syringe 50 Ml*) 12.5 gm IV PUSH .FOR FS < 60 - SS PRN PRN Reason: FS < 60 Furosemide (Lasix Iv*) 80 mg IV SLOW PU 0800,1500 [facility] Last Admin: 09/13/18 14:35 Dose: 80 mg Heparin Sodium (Porcine) (Heparin Vial(*)) 5,000 units SUBCUT Q8HR [facility] Last Admin: 09/13/18 14:35 Dose: 5,000 units Insulin Glargine (Lantus(*)) 18 units SUBCUT Q12H [facility] Last Admin: 09/13/18 08:08 Dose: 18 unit Insulin Human Lispro (Humalog*) 0 units SUBCUT AC [facility]; Protocol Last Admin: 09/13/18 12:40 Dose: 6 units Lisinopril (Prinivil Tab*) 20 mg PO DAILY [facility] Last Admin: 03/22/19 08:07 Dose: 20 mg Mupirocin (Bactroban 2 % Oint*) 1 applic TOPICAL BID [facility] Last Admin: 09/13/18 08:09 Dose: 1 admin Tamsulosin HCl (Flomax Cap*) 0.4 mg PO DAILY [facility] Last Admin: 09/13/18 08:07 Dose: 0.4 mg Vital Signs - 8 hr 09/13/18 09/13/18 09/13/18 07:44 09:10 11:28 Temperature 97.7 F 97.5 F Pulse Rate 82 79 Respiratory 18 16 16 Rate Blood Pressure 137/70 131/56 (mmHg) O2 Sat by Pulse 98 99 Oximetry 09/13/18 12:15 Temperature 97 F Pulse Rate Respiratory 16 Rate Blood Pressure 131/56 (mmHg) O2 Sat by Pulse 99 Oximetry Oxygen Devices in Use Now: Nasal Cannula Appearance: Patient is a 63yo male who appears older than stated age and is sitting in the bed in [facility]. Eyes: No Scleral Icterus, PERRLA Ears/Nose/Mouth/Throat: NL Teeth, Lips, Gums, Clear Oropharnyx, Mucous Membranes Moist Neck: NL Appearance and Movements; NL JVP, Trachea Midline Respiratory: Symmetrical Chest Expansion and Respiratory Effort, - - Diminished Cardiovascular: NL Sounds; No Murmurs; No JVD, RRR, - - 2+ B/L LE edema. Abdominal: NL Sounds; No Tenderness; No Distention, No Hepatosplenomegaly Lymphatic: No Cervical Adenopathy Extremities: No Edema, No Clubbing, Cyanosis Skin: No Rash or Ulcers, No Nodules or Sclerosis Neurological: Alert and Oriented x 3, NL Sensation, NL Muscle Strength and Tone , - - CN II-XII intact. Result Diagrams: 09/13/18 06:12 09/13/18 06:12 Microbiology and Other Data: Microbiology 09/11/18 16:47 Gram Stain - Final Sputum Expectorated Sputum Culture - Preliminary Proteus Mirabilis Assess/Plan/Problems-Billing Assessment: - Patient Problems (1) Acute heart failure with preserved ejection fraction Current Visit: Yes Status: Acute Code(s): I50.31 - ACUTE DIASTOLIC ( CONGESTIVE) HEART FAILURE SNOMED Code(s): 063691177 Comment: - With Acute hypoxic respiratory failure - Clinically fluid overloaded. LE Edema, Diminished lung sounds. - Patient denies previous history of HF, but had an elevated pro-ntBNP from 08/26 - TTE shows preserved EF with RV overload. - IV diuresis at relatively high dose due to Renal Failure, increase again today due to weight increase overnight despite subjective improvement in symptoms. - Increase lasix to 80mg IV BID - Strict I/O and Daily Weights, Fluid restriction, down 4 lbs overnight and 1 from admission (2) Pulmonary HTN Current Visit: Yes Status: Acute Code(s): I27.20 - PULMONARY HYPERTENSION, UNSPECIFIED SNOMED Code(s): 82703041 Comment: - RV pressure overload on TTE, differential includes HFpEF, SAI or Obesity Hypoventilation. - Will check overnight pulse oximetry for SAI, unable to be done on 09/11, will attempt again - V/Q scan negative for PE (3) HTN (hypertension) Current Visit: Yes Status: Acute Code(s): I10 - ESSENTIAL (PRIMARY) HYPERTENSION SNOMED Code(s): 93234754 Comment: - Normotensive today - Continue amlodipine and lisinopril. (4) Diabetes mellitus Current Visit: Yes Status: Acute Code(s): E11.9 - TYPE 2 DIABETES MELLITUS WITHOUT COMPLICATIONS SNOMED Code(s): 20097245 Comment: - Continue Basal and SSI, hold scheduled mealtime insulin due to normoglycemia - A1c 8.8%, will need continued adjustment of medications outpatient when back to normal oral intake routine. (5) CKD (chronic kidney disease) Current Visit: Yes Status: Acute Code(s): N18.9 - CHRONIC KIDNEY DISEASE, UNSPECIFIED SNOMED Code(s): 454138329 Comment: - Due to Nephrectomy with likely Diabetic nephropathy contributing - At baseline from 08/26 labs. Up from Cret of 2.5 in - Monitor closely with diuresis, may see improvement with resolution of fluid overload. - Avoid nephrotoxins, lisinopril for renal protection. - Had SPEP from 08/26 consistent with MGUS, Will need follow up with bone marrow biopsy - Hyperkalemia improving, continue to monitor - Will need nephrology Follow up outpatient which ws previously scheduled. (6) Anemia Current Visit: Yes Status: Acute Code(s): D64.9 - ANEMIA, UNSPECIFIED SNOMED Code(s): 316703862 Comment: - Likely related to LILLY and Renal disease - Give IV iron inpatient, may benefit from Epo when not in HF exacerbation - Stable - Improvement in anemia may benefit cardiac status. (7) DVT prophylaxis Current Visit: Yes Status: Acute Code(s): LJS9804 - SNOMED Code(s): 960718508 Comment: - Heparin SubQ (8) Full code status Current Visit: Yes Status: Acute Code(s): Z78.9 - OTHER SPECIFIED HEALTH STATUS SNOMED Code(s): 996695807 Status and Disposition: Inpatient for diuresis. Discharge when medically stable.
[2018-09-14] MEDS: Heparin VIAL(*) 5000 UNITS/ML VIAL (FIVE THOUSAND) SUBCUT SCH ×3 (05:14→21:38)
[2018-09-14 06:38] LABS: ABS Basophils 0 10^3/ul (0-0.2); ABS Eosinophils 0.8 10^3/ul (0-0.6); ABS Lymphocytes 1.3 10^3/ul (1.0-4.8); ABS Monocytes 1.2 10^3/ul (0-0.8); ABS Nucleated RBC 0 10^3/ul; Eosinophil % 6.6 %; Hematocrit 27 % (36-46); Hemoglobin 8.8 g/dL (14.0-18.0); Lymphocyte % 10.4 %; Mean Corpuscular HGB Conc 33 g/dL (31-36); Mean Corpuscular Hemoglobin 30 pg (27-31); Mean Corpuscular Volume 91 fL (80-94); Mean Platelet Volume 7.2 fL (7.4-10.4); Nucleated Red Blood Cells % 0; Platelet Count 243 10^3/uL (150-450); Red Blood Count 2.96 10^6 /uL (4.18-5.48); Red Cell Distribution Width 14 % (10.5-15); White Blood Count 12.4 10^3/uL (3.5-10.8)
[2018-09-14 06:55] LABS: BUN/Creatinine Ratio 24.1 (8-20); Calcium 8.5 mg/dL (8.6-10.3); EGFR African American 26.5 (>60); EGFR Non-African American 21.9 (>60); Magnesium 1.8 mg/dL (1.9-2.7)
[2018-09-14 07:04] LABS: Potassium 5.3 mmol/L (3.5-5.0)
[2018-09-14] MEDS: Insulin GLARGINE(*) 1 UNITS UNIT SUBCUT SCH ×2 (07:48→21:38)
[2018-09-14] MEDS: Insulin LISPRO* 1 UNITS UNIT SUBCUT SCH ×3 (07:48→16:46)
[2018-09-14] MEDS: Furosemide IV* 10 MG/ML 2 ML VIAL (20 MG) IV SLOW PU SCH ×3 (07:48→14:41)
[2018-09-14] MEDS ORDERED: Magnesium Sulfate 2 GM IV* 2 GM/50 ML BAG IVPB ONE (09:00)
[2018-09-14] MEDS ORDERED: Iron Sucrose* 200 MG in NS 0.9% 100 ML* 100 ML IVPB ONE ×2 (09:00→14:52)
[2018-09-14] MEDS: Atorvastatin* 40 MG TAB PO SCH (09:23)
[2018-09-14] MEDS: Aspirin 81 mg CHEW TAB* 81 MG TAB.CHEW PO SCH (09:23)
[2018-09-14] MEDS: Tamsulosin CAP* 0.4 MG PO SCH (09:23)
[2018-09-14] MEDS: Mupirocin 2% OINT* TUBE TOPICAL SCH ×2 (09:23→21:49)
[2018-09-14] MEDS: amLODIPine TAB* 5 MG PO SCH (09:23)
[2018-09-14] MEDS: Lisinopril TAB* 10 MG PO SCH (09:23)
--- NOTE | 2018-09-14 14:46 | PN ---
Subjective Date of Service: 09/14/18 Interval History: Patient is feeling progressively better with diuresis and is producing frequent moderate amounts of urine. Patient denies CP, SOB, F/C, N/V, abdominal pain, diarrhea, dysuria, dizziness, or other pain. Family History: Unchanged from Admission Social History: Unchanged from Admission Past Medical History: Unchanged from Admission Objective Active Medications: Acetaminophen (Tylenol Tab*) 650 mg PO Q4H PRN PRN Reason: FEVER/PAIN Albuterol (Ventolin 2.5 Mg/3 Ml Neb.Jessica*) 2.5 mg INH [id number] AWAKE PRN PRN Reason: sob/wheezing Last Admin: 09/13/18 03:05 Dose: 2.5 mg Albuterol/Ipratropium (Duoneb (Albuterol 2.5 Mg/Ipratropium 0.5 Mg)) 1 neb INH [id number] AWAKE PRN PRN Reason: sob/wheexing Amlodipine Besylate (Norvasc Tab*) 10 mg PO DAILY [facility] Last Admin: 09/14/18 09:23 Dose: 10 mg Aspirin (Aspirin 81 Mg Chew Tab*) 81 mg PO DAILY [facility] Last Admin: 09/14/18 09:23 Dose: 81 mg Atorvastatin Calcium (Lipitor*) 40 mg PO DAILY [facility] Last Admin: 09/14/18 09:23 Dose: 40 mg Dextrose (D50w Syringe 50 Ml*) 12.5 gm IV PUSH .FOR FS < 60 - SS PRN PRN Reason: FS < 60 Furosemide (Lasix Iv*) 80 mg IV SLOW PU 0800,1500 [facility] Last Admin: 09/14/18 07:48 Dose: 80 mg Heparin Sodium (Porcine) (Heparin Vial(*)) 5,000 units SUBCUT Q8HR [facility] Last Admin: 09/14/18 14:07 Dose: 5,000 units Insulin Glargine (Lantus(*)) 18 units SUBCUT Q12H [facility] Last Admin: 09/14/18 07:48 Dose: 18 unit Insulin Human Lispro (Humalog*) 0 units SUBCUT AC [facility]; Protocol Last Admin: 09/14/18 11:27 Dose: 6 units Lisinopril (Prinivil Tab*) 20 mg PO DAILY [facility] Last Admin: 09/14/18 09:23 Dose: 20 mg Mupirocin (Bactroban 2 % Oint*) 1 applic TOPICAL BID [facility] Last Admin: 09/14/18 09:23 Dose: 1 admin Tamsulosin HCl (Flomax Cap*) 0.4 mg PO DAILY [facility] Last Admin: 09/14/18 09:23 Dose: 0.4 mg Vital Signs - 8 hr 09/14/18 09/14/18 09/14/18 07:20 07:55 11:05 Temperature 97.8 F 97.9 F Pulse Rate 91 88 Respiratory 18 18 16 Rate Blood Pressure 144/77 148/67 (mmHg) O2 Sat by Pulse 99 96 Oximetry Oxygen Devices in Use Now: None Appearance: Patient is a 63yo male who appears older than stated age and is sitting in the bed in [facility]. Eyes: No Scleral Icterus, PERRLA Ears/Nose/Mouth/Throat: NL Teeth, Lips, Gums, Clear Oropharnyx, Mucous Membranes Moist Neck: NL Appearance and Movements; NL JVP, Trachea Midline Respiratory: Symmetrical Chest Expansion and Respiratory Effort, Clear to Auscultation Cardiovascular: NL Sounds; No Murmurs; No JVD, RRR, - - 2+ edema in B/L LE. Improved. Abdominal: NL Sounds; No Tenderness; No Distention, No Hepatosplenomegaly Lymphatic: No Cervical Adenopathy Extremities: No Clubbing, Cyanosis Skin: No Rash or Ulcers, No Nodules or Sclerosis Neurological: Alert and Oriented x 3, NL Sensation, NL Muscle Strength and Tone , - - CN II-XII intact. Result Diagrams: 09/14/18 06:19 09/14/18 06:19 Microbiology and Other Data: Microbiology 09/11/18 16:47 Gram Stain - Final Sputum Expectorated Sputum Culture - Preliminary Proteus Mirabilis Assess/Plan/Problems-Billing Assessment: - Patient Problems (1) Acute heart failure with preserved ejection fraction Current Visit: Yes Status: Acute Code(s): I50.31 - ACUTE DIASTOLIC ( CONGESTIVE) HEART FAILURE SNOMED Code(s): 042797005 Comment: - With Acute hypoxic respiratory failure, resolved - Clinically fluid overloaded. LE Edema, Diminished lung sounds. Improving - Patient denies previous history of HF, but had an elevated pro-ntBNP from 08/26 - TTE shows preserved EF with RV overload. - IV diuresis at relatively high dose due to Renal Failure, increase again today due to weight increase overnight despite subjective improvement in symptoms. - Increase lasix to 80mg IV BID, consider beginning to decreased tomorrow. - Cret improving with diuresis. - Strict I/O and Daily Weights, Fluid restriction, down 4 lbs overnight and 1 from admission (2) CKD (chronic kidney disease) Current Visit: Yes Status: Acute Code(s): N18.9 - CHRONIC KIDNEY DISEASE, UNSPECIFIED SNOMED Code(s): 375773226 Comment: - Due to Nephrectomy with likely Diabetic nephropathy contributing - At baseline from 08/26 labs, though patient was fluid overloaded at that time. Up from Cret of 2.5 in - Monitor closely with diuresis, Improving with improvement in fluid overload. - Avoid nephrotoxins, lisinopril for renal protection. - Had SPEP from 08/26 consistent with MGUS, Will need follow up with bone marrow biopsy - Hyperkalemia persistent and mild, continue diuresis and monitor closely. May improve with Improving Cret. - Will need nephrology Follow up outpatient which was previously scheduled. (3) Pulmonary HTN Current Visit: Yes Status: Acute Code(s): I27.20 - PULMONARY HYPERTENSION, UNSPECIFIED SNOMED Code(s): 90803191 Comment: - RV pressure overload on TTE, differential includes HFpEF, SAI or Obesity Hypoventilation. - Will check overnight pulse oximetry for SAI, unable to be done on 09/11, will attempt again - V/Q scan negative for PE (4) HTN (hypertension) Current Visit: Yes Status: Acute Code(s): I10 - ESSENTIAL (PRIMARY) HYPERTENSION SNOMED Code(s): 80365212 Comment: - Normotensive today - Continue amlodipine and lisinopril. (5) Diabetes mellitus Current Visit: Yes Status: Acute Code(s): E11.9 - TYPE 2 DIABETES MELLITUS WITHOUT COMPLICATIONS SNOMED Code(s): 51515259 Comment: - Continue Basal and SSI, hold scheduled mealtime insulin due to normoglycemia - A1c 8.8%, will need continued adjustment of medications outpatient when back to normal oral intake routine. (6) Anemia Current Visit: Yes Status: Acute Code(s): D64.9 - ANEMIA, UNSPECIFIED SNOMED Code(s): 391506047 Comment: - Likely related to LILLY and Renal disease - Give IV iron inpatient, may benefit from Epo when not in HF exacerbation - Stable - Improvement in anemia may benefit cardiac status. (7) DVT prophylaxis Current Visit: Yes Status: Acute Code(s): PZG1548 - SNOMED Code(s): 130999473 Comment: - Heparin SubQ (8) Full code status Current Visit: Yes Status: Acute Code(s): Z78.9 - OTHER SPECIFIED HEALTH STATUS SNOMED Code(s): 089304295 Status and Disposition: Inpatient for diuresis. Discharge when medically stable. estimate 1-2 more days.
[2018-09-14] MEDS: Nystatin TOP POWDER* 15 GM BTL TOPICAL SCH (21:37)
[2018-09-15] MEDS: Heparin VIAL(*) 5000 UNITS/ML VIAL (FIVE THOUSAND) SUBCUT SCH ×3 (05:40→22:05)
[2018-09-15 05:51] LABS: ABS Basophils 0.1 10^3/ul (0-0.2); ABS Eosinophils 0.8 10^3/ul (0-0.6); ABS Lymphocytes 1.3 10^3/ul (1.0-4.8); ABS Monocytes 1.3 10^3/ul (0-0.8); ABS Neutrophils 9.2 10^3/ul (1.5-7.7); ABS Nucleated RBC 0 10^3/ul; Eosinophil % 6.1 %; Hematocrit 28 % (36-46); Hemoglobin 9.2 g/dL (14.0-18.0); Lymphocyte % 10.3 %; Mean Corpuscular HGB Conc 33 g/dL (31-36); Mean Corpuscular Hemoglobin 30 pg (27-31); Mean Corpuscular Volume 91 fL (80-94); Mean Platelet Volume 7.5 fL (7.4-10.4); Nucleated Red Blood Cells % 0; Platelet Count 270 10^3/uL (150-450); Red Blood Count 3.05 10^6 /uL (4.18-5.48); Red Cell Distribution Width 14 % (10.5-15); White Blood Count 12.6 10^3/uL (3.5-10.8)
[2018-09-15 06:09] LABS: BUN/Creatinine Ratio 22.6 (8-20); Calcium 8.7 mg/dL (8.6-10.3); EGFR African American 23.9 (>60); EGFR Non-African American 19.7 (>60); Magnesium 2.1 mg/dL (1.9-2.7)
[2018-09-15 06:12] LABS: Potassium 5.1 mmol/L (3.5-5.0)
[2018-09-15] MEDS: Insulin LISPRO* 1 UNITS UNIT SUBCUT SCH ×3 (07:46→16:46)
[2018-09-15] MEDS: Aspirin 81 mg CHEW TAB* 81 MG TAB.CHEW PO SCH (08:02)
[2018-09-15] MEDS: Tamsulosin CAP* 0.4 MG PO SCH (08:02)
[2018-09-15] MEDS: amLODIPine TAB* 5 MG PO SCH (08:02)
[2018-09-15] MEDS: Atorvastatin* 40 MG TAB PO SCH (08:02)
[2018-09-15] MEDS: Lisinopril TAB* 10 MG PO SCH (08:02)
[2018-09-15] MEDS: Insulin GLARGINE(*) 1 UNITS UNIT SUBCUT SCH ×2 (08:03→20:27)
[2018-09-15] MEDS: Nystatin TOP POWDER* 15 GM BTL TOPICAL SCH ×2 (08:04→22:05)
[2018-09-15] MEDS: Furosemide IV* 10 MG/ML 2 ML VIAL (20 MG) IV SLOW PU SCH (08:11)
[2018-09-15] MEDS: Mupirocin 2% OINT* TUBE TOPICAL SCH ×2 (09:00→22:06)
--- NOTE | 2018-09-15 09:49 | PN ---
Subjective Date of Service: 09/15/18 Interval History: patient denies cough, sob, no sputum production. reports was treated for bronchitis earlier this month and feels that is resolved. LE edema worsened the last few weeks. Reports it is improved since admission. he denies eating a lot of salt and reports he eats a low salt diet. Feels that he could go home tomorrow. He has an appointment with a tax services manager this week in [place]. Family History: Unchanged from Admission Social History: Unchanged from Admission Past Medical History: Unchanged from Admission Objective Active Medications: Acetaminophen (Tylenol Tab*) 650 mg PO Q4H PRN PRN Reason: FEVER/PAIN Albuterol (Ventolin 2.5 Mg/3 Ml Neb.Jessica*) 2.5 mg INH [id number] AWAKE PRN PRN Reason: sob/wheezing Last Admin: 09/13/18 03:05 Dose: 2.5 mg Albuterol/Ipratropium (Duoneb (Albuterol 2.5 Mg/Ipratropium 0.5 Mg)) 1 neb INH [id number] AWAKE PRN PRN Reason: sob/wheexing Amlodipine Besylate (Norvasc Tab*) 10 mg PO DAILY [facility] Last Admin: 09/15/18 08:02 Dose: 10 mg Aspirin (Aspirin 81 Mg Chew Tab*) 81 mg PO DAILY [facility] Last Admin: 09/15/18 08:02 Dose: 81 mg Atorvastatin Calcium (Lipitor*) 40 mg PO DAILY [facility] Last Admin: 09/15/18 08:02 Dose: 40 mg Dextrose (D50w Syringe 50 Ml*) 12.5 gm IV PUSH .FOR FS < 60 - SS PRN PRN Reason: FS < 60 Furosemide (Lasix Iv*) 80 mg IV SLOW PU 0800,1500 [facility] Last Admin: 09/15/18 08:11 Dose: 80 mg Heparin Sodium (Porcine) (Heparin Vial(*)) 5,000 units SUBCUT Q8HR [facility] Last Admin: 09/15/18 05:40 Dose: 5,000 units Insulin Glargine (Lantus(*)) 18 units SUBCUT Q12H [facility] Last Admin: 09/15/18 08:03 Dose: 18 unit Insulin Human Lispro (Humalog*) 0 units SUBCUT AC [facility]; Protocol Last Admin: 09/15/18 07:46 Dose: Not Given Lisinopril (Prinivil Tab*) 20 mg PO DAILY [facility] Last Admin: 09/15/18 08:02 Dose: 20 mg Mupirocin (Bactroban 2 % Oint*) 1 applic TOPICAL BID [facility] Last Admin: 09/15/18 09:00 Dose: 1 admin Nystatin (Nystatin Top Powder*) 1 applic TOPICAL BID [facility] Last Admin: 09/15/18 08:04 Dose: 1 applic Tamsulosin HCl (Flomax Cap*) 0.4 mg PO DAILY [facility] Last Admin: 09/15/18 08:02 Dose: 0.4 mg Vital Signs - 8 hr 09/15/18 09/15/18 09/15/18 04:00 07:25 07:32 Temperature 98.5 F 97.4 F Pulse Rate 86 87 Respiratory 20 20 16 Rate Blood Pressure 149/67 155/71 (mmHg) O2 Sat by Pulse 96 95 Oximetry Oxygen Devices in Use Now: None Appearance: chronically ill 63 yo male sitting up in a chair in NAD, A+O x3 Eyes: No Scleral Icterus, PERRLA Ears/Nose/Mouth/Throat: Mucous Membranes Moist Neck: NL Appearance and Movements; NL JVP Respiratory: Symmetrical Chest Expansion and Respiratory Effort, Clear to Auscultation Cardiovascular: NL Sounds; No Murmurs; No JVD, RRR, - - 2-3+ LE edema in feet/LE 's bilaterally - charly wraps in place Abdominal: NL Sounds; No Tenderness; No Distention, - - obese Extremities: No Clubbing, Cyanosis Neurological: Alert and Oriented x 3, NL Sensation, NL Muscle Strength and Tone Lines/Tubes/Other Access: Clean, Dry and Intact Peripheral IV Nutrition: Taking PO's Result Diagrams: 09/15/18 05:22 09/15/18 05:22 Microbiology and Other Data: Microbiology 09/11/18 16:47 Gram Stain - Final Sputum Expectorated Sputum Culture - Preliminary Proteus Mirabilis Assess/Plan/Problems-Billing Assessment: 63 yo male with a PMH of morbid obesity, insulin dependent type 2 Diabetes, HTN, CKD secondary to nephrectomy secondary to renal carcinoma who presented to the ER with c/o SOB found to have acute CHF exacerbation. - Patient Problems (1) Acute heart failure with preserved ejection fraction Comment: - With Acute hypoxic respiratory failure, resolved - Clinically fluid overloaded. Improving slowly. Down 4 lbs since yesterday. Off oxygen - Patient denies previous history of HF, but had an elevated pro-ntBNP from 08/26 - TTE shows preserved EF with RV overload. - lasix 80mg IV BID since 09/13 - creatinine up today 3.18 - decrease lasix to 60 mg IV BID. - Strict I/O and Daily Weights, down 4 lbs overnight - doesnt appear accurate related to output - he did diurese 2 liters overnight with a net -975 mls. - [facility] (2) Anemia Comment: - Likely related to LILLY and Renal disease - Give IV iron inpatient, may benefit from Epo when not in HF exacerbation - Stable - Improvement in anemia may benefit cardiac status. (3) CKD (chronic kidney disease) Comment: - Hx of total right nephrectomy, left partial neprectomy. has 2/3rd of left kidney - Due to Nephrectomy with likely Diabetic nephropathy contributing - At baseline from 08/26 labs, though patient was fluid overloaded at that time. Up from Cret of 2.5 in - Monitor closely with diuresis - Avoid nephrotoxins, hold lisinopril due to giving lasix and creatinine trending up - Had SPEP from 08/26 consistent with MGUS, Will need follow up with bone marrow biopsy - Hyperkalemia persistent and mild, continue diuresis and monitor closely. May improve with Improving Cret. - Will need nephrology Follow up outpatient which was previously scheduled for this week (4) Cough Comment: - resolved. was recently treated as outpt for Bronchitis. Posotive sputum cx for H. Influenza and proteues. Averynetly has no cough or SOB. Not on oxygen. low suspicion for pneumonia or bronchitis. (5) Diabetes mellitus Comment: - Continue Basal and SSI - controlled - A1c 8.8%, will need continued adjustment of medications outpatient (6) HTN (hypertension) Comment: - Normotensive today - Continue amlodipine and lisinopril. (7) Pulmonary HTN Comment: - RV pressure overload on TTE, differential includes HFpEF, SAI or Obesity Hypoventilation. - V/Q scan negative for PE (8) Full code status (9) DVT prophylaxis Comment: - Heparin SubQ Status and Disposition: Inpatient for diuresis. Discharge when medically stable. estimate 1-2 more days.
[2018-09-15] MEDS ORDERED: Furosemide IV* 10 MG/ML VIAL (40 MG) IV SLOW PU SCH (15:00)
[2018-09-15] MEDS: Furosemide IV* 10 MG/ML 10 ML VIAL (100 MG) IV SCH (16:46)
[2018-09-16] MEDS: Heparin VIAL(*) 5000 UNITS/ML VIAL (FIVE THOUSAND) SUBCUT SCH ×2 (05:30→13:08)
[2018-09-16 06:14] LABS: ABS Basophils 0.1 10^3/ul (0-0.2); ABS Eosinophils 0.8 10^3/ul (0-0.6); ABS Lymphocytes 1.4 10^3/ul (1.0-4.8); ABS Monocytes 1.2 10^3/ul (0-0.8); ABS Neutrophils 8.8 10^3/ul (1.5-7.7); ABS Nucleated RBC 0 10^3/ul; Eosinophil % 6.7 %; Hematocrit 28 % (36-46); Hemoglobin 9.1 g/dL (14.0-18.0); Lymphocyte % 11.3 %; Mean Corpuscular HGB Conc 33 g/dL (31-36); Mean Corpuscular Hemoglobin 30 pg (27-31); Mean Corpuscular Volume 90 fL (80-94); Mean Platelet Volume 7.1 fL (7.4-10.4); Nucleated Red Blood Cells % 0; Platelet Count 263 10^3/uL (150-450); Red Blood Count 3.07 10^6 /uL (4.18-5.48); Red Cell Distribution Width 14 % (10.5-15); White Blood Count 12.2 10^3/uL (3.5-10.8)
[2018-09-16 06:32] LABS: BUN/Creatinine Ratio 23.5 (8-20); Calcium 8.7 mg/dL (8.6-10.3); EGFR African American 23.5 (>60); EGFR Non-African American 19.4 (>60)
[2018-09-16] MEDS: Furosemide IV* 10 MG/ML 10 ML VIAL (100 MG) IV SCH (08:08)
[2018-09-16] MEDS: Insulin GLARGINE(*) 1 UNITS UNIT SUBCUT SCH (08:27)
[2018-09-16] MEDS: Insulin LISPRO* 1 UNITS UNIT SUBCUT SCH ×2 (08:28→12:00)
[2018-09-16] MEDS: amLODIPine TAB* 5 MG PO SCH (08:29)
[2018-09-16] MEDS: Atorvastatin* 40 MG TAB PO SCH (08:30)
[2018-09-16] MEDS: Aspirin 81 mg CHEW TAB* 81 MG TAB.CHEW PO SCH (08:30)
[2018-09-16] MEDS: Tamsulosin CAP* 0.4 MG PO SCH (08:30)
[2018-09-16] MEDS ORDERED: Furosemide TAB* 40 MG PO SCH (09:00)
[2018-09-16] MEDS: Mupirocin 2% OINT* TUBE TOPICAL SCH (10:28)
[2018-09-16] MEDS: Nystatin TOP POWDER* 15 GM BTL TOPICAL SCH (10:28)
--- NOTE | 2018-09-16 11:50 | DCNOTE ---
Subjective Date of Service: 09/16/18 Interval History: Pt reports he feels well today and is happy to go home. He has a f/u with nephrology in 2 days and states he has a ride. He reports his LE edema has improved since admission but continues to have edema in his feet. He has been elevating his feet along with charly wraps and feels that this is also helping. Family History: Unchanged from Admission Social History: Unchanged from Admission Past Medical History: Unchanged from Admission Objective Active Medications: Acetaminophen (Tylenol Tab*) 650 mg PO Q4H PRN PRN Reason: FEVER/PAIN Albuterol (Ventolin 2.5 Mg/3 Ml Neb.Jessica*) 2.5 mg INH [id number] AWAKE PRN PRN Reason: sob/wheezing Last Admin: 09/13/18 03:05 Dose: 2.5 mg Albuterol/Ipratropium (Duoneb (Albuterol 2.5 Mg/Ipratropium 0.5 Mg)) 1 neb INH [id number] AWAKE PRN PRN Reason: sob/wheexing Amlodipine Besylate (Norvasc Tab*) 10 mg PO DAILY [facility] Last Admin: 09/16/18 08:29 Dose: 10 mg Aspirin (Aspirin 81 Mg Chew Tab*) 81 mg PO DAILY [facility] Last Admin: 09/16/18 08:30 Dose: 81 mg Atorvastatin Calcium (Lipitor*) 40 mg PO DAILY [facility] Last Admin: 09/16/18 08:30 Dose: 40 mg Dextrose (D50w Syringe 50 Ml*) 12.5 gm IV PUSH .FOR FS < 60 - SS PRN PRN Reason: FS < 60 Heparin Sodium (Porcine) (Heparin Vial(*)) 5,000 units SUBCUT Q8HR [facility] Last Admin: 09/16/18 05:30 Dose: 5,000 units Insulin Glargine (Lantus(*)) 18 units SUBCUT Q12H [facility] Last Admin: 09/16/18 08:27 Dose: 18 unit Insulin Human Lispro (Humalog*) 0 units SUBCUT AC [facility]; Protocol Last Admin: 09/16/18 08:28 Dose: 2 units Mupirocin (Bactroban 2 % Oint*) 1 applic TOPICAL BID [facility] Last Admin: 09/16/18 10:28 Dose: 1 admin Nystatin (Nystatin Top Powder*) 1 applic TOPICAL BID [facility] Last Admin: 09/16/18 10:28 Dose: 1 applic Tamsulosin HCl (Flomax Cap*) 0.4 mg PO DAILY [facility] Last Admin: 09/16/18 08:30 Dose: 0.4 mg Vital Signs - 8 hr 09/16/18 09/16/18 09/16/18 04:01 07:10 07:31 Temperature 98.0 F 98.1 F Pulse Rate 93 84 Respiratory 20 20 16 Rate Blood Pressure 145/73 135/66 (mmHg) O2 Sat by Pulse 96 95 Oximetry Oxygen Devices in Use Now: None Appearance: chronically ill male A+O x3 in NAD Eyes: No Scleral Icterus, PERRLA Ears/Nose/Mouth/Throat: Mucous Membranes Moist Respiratory: Symmetrical Chest Expansion and Respiratory Effort, Clear to Auscultation Cardiovascular: NL Sounds; No Murmurs; No JVD, RRR, - - 1-2+ LE edema - legs in charly wraps. Warm and pink Abdominal: - - obese Extremities: No Clubbing, Cyanosis Neurological: Alert and Oriented x 3, NL Sensation Lines/Tubes/Other Access: Clean, Dry and Intact Peripheral IV Nutrition: Taking PO's Result Diagrams: 09/16/18 06:03 09/16/18 06:03 Microbiology and Other Data: Microbiology 09/11/18 16:47 Gram Stain - Final Sputum Expectorated Sputum Culture - Preliminary Proteus Mirabilis Assess/Plan/Problems-Billing Assessment: 63 yo male with a PMH of morbid obesity, insulin dependent type 2 Diabetes, HTN, CKD secondary to nephrectomy secondary to renal carcinoma who presented to the ER with c/o SOB found to have acute CHF exacerbation. - Patient Problems (1) Acute heart failure with preserved ejection fraction Comment: - With Acute hypoxic respiratory failure, resolved - Clinically fluid overloaded. much improvement. Off oxygen - Patient denies previous history of HF, but had an elevated pro-ntBNP from 08/26 - TTE shows preserved EF with RV overload. - creatinine today 3.2 which [facility] - [facility] - continue home dose lasix 40 mg daily - encourage LE charly wraps and elevating legs (2) Anemia Comment: - Likely related to LILLY and Renal disease - Give IV iron inpatient, may benefit from Epo - has a nephrology appointment in 2 days - Stable (3) CKD (chronic kidney disease) Comment: - Hx of total right nephrectomy, left partial neprectomy. 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 was recently treated as outpt for Bronchitis. Positive sputum cx for H. Influenza and proteues. Maksim has no cough or SOB. Not on oxygen. low suspicion for pneumonia or bronchitis. (5) Diabetes mellitus Comment: - Continue Basal and SSI - controlled - A1c 8.8%, will need continued adjustment of medications outpatient (6) HTN (hypertension) Comment: - Normotensive today - Continue amlodipine and lisinopril. (7) Pulmonary HTN Comment: - RV pressure overload on TTE, differential includes HFpEF, SAI or Obesity Hypoventilation. - V/Q scan negative for PE (8) Full code status (9) DVT prophylaxis Comment: - Heparin SubQ Status and Disposition: Inpatient. Discharge today - stable.
[2018-09-16 12:35] VITALS: BP 148/79
[2018-09-16] MEDS ORDERED: Lisinopril TAB* 10 MG PO ONE (12:41)
--- NOTE | 2018-09-16 22:26 | DS ---
DISCHARGE SUMMARY: DATE OF ADMISSION: 09/12/18 DATE OF DISCHARGE: 09/16/18 PROVIDER: Jose Joshua NP ATTENDING PHYSICIAN: Dr. Quispe * (report dictated by Jose Joshua NP). PRIMARY CARE PROVIDER: Remedios Webb [facility]. DISCHARGE DIAGNOSES: 1. Acute respiratory failure secondary to congestive heart failure. 2. Chronic kidney disease. 3. Shortness of breath secondary to acute respiratory failure secondary to congestive heart failure. SECONDARY DIAGNOSES: 1. Type 2 diabetes, insulin dependent. 2. Chronic kidney disease secondary to complete nephrectomy of the right kidney and partial nephrectomy of the left kidney. 3. History of kidney cancer. 4. Hypertension. 5. Hyperlipidemia. 6. Morbid obesity. 7. Benign prostatic hypertrophy. DISCHARGE MEDICATIONS: 1. Insulin regular 10 units subcu a.c. 2. Lasix 40 mg p.o. daily. 3. Flomax 0.4 mg p.o. daily. 4. Bactroban 2% one application topical b.i.d. 5. Lisinopril 20 mg p.o. daily. 6. Insulin Detemir 54 units subcu b.i.d. 7. Vitamin D 2000 units p.o. daily. 8. Atorvastatin 40 mg p.o. daily. 9. Vitamin C 250 mg p.o. daily. 10. Amlodipine 10 mg p.o. daily. HISTORY OF PRESENT ILLNESS AND HOSPITAL COURSE: Please see history and physical by Dr. Magalis Castaneda NP for full admission details, but in summary , this is a 63- year-old male with a complex past medical history as stated above, who presented to the emergency department on 09/10/18 from [place] [facility] with complaints of shortness of breath. The patient presented to [place] emergency room with report of a cough for several weeks. He stated he presented to an urgent care on 08/26/18, in which he was given antibiotics and was diagnosed with bronchitis. He reported the cough to be dry with no sputum production. The night before he presented to the ER at [place] , he reported he woke up around 4 a.m. significantly short of breath when he was lying flat. He did feel better with oxygen supplementation. He was transferred to [facility] for further cardiology workup. He was noted to have a high potassium in which he received Kayexalate, calcium gluconate insulin and dextrose. It was noted his potassium was 5.8 at [facility]. The patient was admitted to the hospitalist service for shortness of breath with suspicion of congestive heart failure, exacerbation. BNP was mildly elevated at 267. He as well had a D-dimer of 312, unable to go through a CTA of the chest due to renal function. He underwent a V/Q nuclear medicine lung scan, which was a negative scan. The patient at home was on 40 mg of Lasix p.o. He was given a high dose IV Lasix throughout hospitalization and did diurese quite a bit. Per the medical record, he lost approximately 15 to 20 pounds. His renal function on admission showed a creatinine of 3.03 and today on discharge of 3.23. Records from the [place] [place] were obtained and it appears his baseline creatinine is around 3.1, as well the patient's lower extremities were wrapped and elevated and the patient reports great improvement since admission to the hospital. He underwent a transthoracic echocardiogram, which showed impression: Mild concentric left ventricular hypertrophy is observed. There is normal left ventricular systolic function. The estimated ejection fraction is 55% to 60%. The right ventricular global systolic function is low normal. There is trace of aortic regurgitation. There is no evidence of aortic stenosis. There is [id number] mitral regurgitation. There is [id number] tricuspid regurgitation. There is no significant pericardial effusion. The patient reports that he does not follow the manager of creative services, this has been recommended to the patient as an outpatient. The patient was seen by CLEANER TOUCH UP WORKER, Suzy Little, for wounds to his feet bilaterally, noted to have bilateral diabetic foot wounds. Antibiotic ointment daily and a dry dressing, which is a Band-Aid. The patient was instructed to continue at home. He was instructed to continue to follow the [facility]. Recommendation was to consider ABIs and MRI if these wounds become chronic. In regards to the patient's type 2 diabetes, he was noted to have a hemoglobin A1c of 8.8. We have no prior hemoglobin A1c to compare to. The patient would benefit from tighter control as an outpatient. I leave this to the primary care provider. In regards to the patient's chronic kidney disease, per the patient he is scheduled to see a lockstitch coat joiner at the [facility] this Sunday, on 09/18/18. The patient's vital signs have remained hemodynamically stable throughout hospitalization. He is to resume back on his home medications. He was instructed to weigh himself daily. If he gains 3 pounds, to notify his primary care provider. Please note, the patient did have a sputum that grew Haemophilus parainfluenzae and Proteus mirabilis. He had found no pneumonia on his chest x-ray or cough. Most likely this is colonization and did not have any sound acute respiratory symptoms and even though the patient did present with shortness of breath, this was suspected secondary to congestive heart failure exacerbation, which resolved with diuresing. Again, this patient is a complex 63-year-old male, who was treated for congestive heart failure exacerbation and responded to diuresing. Recommendations to follow up with primary care provider within one week as well he will need a referral to a [place] manager of creative services for a followup. The patient has a previously scheduled appointment with a lockstitch coat joiner this week in [place]. The patient is stable for discharge to home. Discharge instructions were reviewed by this author. TIME SPENT: Approximately 60 minutes was spent on this discharge. JOSE JOSHUA NP [id number]/[facility] #: [id number] HA
== END 2018-09-16 14:40 | disposition home or self-care (01) | DRG 291 ==
LOC: ED 12:38 → MEDTELE 15:16 → OBSVTOIN 09-12 10:06
PROVIDERS: ADMIT Internal Medicine; ATTEND Internal Medicine
DX: I13.0 Hypertensive heart and chronic kidney disease with heart failure and stage 1 through stage 4 chronic kidney disease, or unspecified chronic kidney disease (principal); I50.33 Acute on chronic diastolic (congestive) heart failure; J96.01 Acute respiratory failure with hypoxia; N18.4 Chronic kidney disease, stage 4 (severe); Z68.42 Body mass index [BMI] 45.0-49.9, adult; E11.22 Type 2 diabetes mellitus with diabetic chronic kidney disease; I48.91 Unspecified atrial fibrillation; I25.10 Atherosclerotic heart disease of native coronary artery without angina pectoris; E78.00 Pure hypercholesterolemia, unspecified; E87.5 Hyperkalemia; I44.0 Atrioventricular block, first degree; E66.01 Morbid (severe) obesity due to excess calories; I08.3 Combined rheumatic disorders of mitral, aortic and tricuspid valves; E78.5 Hyperlipidemia, unspecified; N40.0 Benign prostatic hyperplasia without lower urinary tract symptoms; D64.9 Anemia, unspecified; E11.621 Type 2 diabetes mellitus with foot ulcer; L97.519 Non-pressure chronic ulcer of other part of right foot with unspecified severity; L97.529 Non-pressure chronic ulcer of other part of left foot with unspecified severity; B96.3 Hemophilus influenzae [H. influenzae] as the cause of diseases classified elsewhere; B96.4 Proteus (mirabilis) (morganii) as the cause of diseases classified elsewhere; R05 Cough; I27.20 Pulmonary hypertension, unspecified; Z85.528 Personal history of other malignant neoplasm of kidney; Z90.5 Acquired absence of kidney; Z80.0 Family history of malignant neoplasm of digestive organs; Z87.891 Personal history of nicotine dependence; Z89.421 Acquired absence of other right toe(s); Z79.4 Long term (current) use of insulin
CPT/HCPCS: 36415; 71045; 71046; 78582; 80048; 80053; 80061; 82550; 82553; 82607; 82728; 82746; 83036; 83540; 83550; 83605; 83735; 83880; 84443; 84484; 85025; 85379; 85610; 85730; 86140; 87070; 87077; 87184; 87186; 87205; 93005; 93306; 94640; 94762; 99283; A9270-GY; A9540; A9558; C8929; G0378; J1644; J1756; J1940; J3475